=== PATIENT | male | born 1930 | race Caucasian/White ===

== ENCOUNTER 2016-12-28 14:00 | Inpatient (IN) | payer MEDICARE, BC, MEDICAID ==
[~2016-12-28] VITALS: Ht 172.7 cm; Wt 116.0 kg
--- NOTE | ~2016-12-28 | OR ---
PATIENT'S NAME: ISAIAS LOZADA [facility] AGE: 86 Y [address] ROOM: [address] [address] LOCATION: GICU ADMIT DATE: 12/28/2016 OR/Procedure Report DISCHARGE DATE: FAMILY PHYSICIAN: Eliel Rosas MD ATTENDING PHYSICIAN: JIN JEAN V SURGEON: Med Motta MD MASONRY TEACHER: DATE OF PROCEDURE: 12/28/2016 The following lines were placed during the patient's stay here on PCU. HISTORY OF PRESENT ILLNESS: This is an 86-year-old gentleman with a history of vascular problems. He evidently has a clotted right hand side where the PICC is located and will require removal of it. I have been asked to place a central line and essentially arrived at the bedside about 02:45 in the morning. Detailed discussion of risks, benefits was undertaken with the patient's daughter. The patient himself was quite somnolent and not easily aroused. Vital signs are stable. Blood pressure is 120. I understand previously it was low. He does respond somewhat and appropriately; however, drifts off to sleep, so informed consent was obtained from his daughter instead. DETAILS OF THE PROCEDURE: I attempted to place a central line in the right side, but on ultrasonographic evaluation, he had a very small internal jugular vein and given his volume status, it was very difficult to hit. This was also complicated by the fact that the patient vomited copious amounts of dark particulate fluid, I would not call it coffee-ground. We had to break sterilely for that. At that point, I opted to place a right subclavian. The patient's INR is 1.4, so 1 kit had to be discarded. We were unable to come up with another quad lumen kit, so I placed a 16-cm double-lumen. This could be wired over in the morning if they so desire, but they are unable to provide a quad lumen kit tonight, so the patient essentially was placed in Trendelenburg position. Oxygen was delivered 2 L per nasal cannula. An area overlying his clavicle was sterilely prepped with chlorhexidine. Maximal sterile barrier was placed. I gloved and gowned after washing hands. Skin wheal was raised at 1 or 2 fingerbreadths below the junction of the middle and distal thirds of the clavicle inserting an 18-gauge needle towards sternum, I contacted dark venous blood on the first pass, but was unable to thread the needle on the second pass. I redirected caudally somewhat and was again unsuccessful in contacting the vein. The second wire threaded without difficulty. Brief nonsustained ectopy resolved with pullback. A small skin andres was made. A dilator was passed. An 8-Salvadorean two lumen central line was placed over the wire to its hub. Both lumens flushed and pepe freely dark venous blood and this was then sutured in place with 2-0 silk and covered with sterile Tegaderm. At that point, the patient vomited copious amounts down his chest PATIENT'S NAME: ISAIAS LOZADA [facility] AGE: 86 Y [address] ROOM: [address] [address] LOCATION: [facility] ADMIT DATE: 12/28/2016 OR/Procedure Report DISCHARGE DATE: FAMILY PHYSICIAN: Eliel Rosas MD ATTENDING PHYSICIAN: JIN JEAN. By then, we had the Tegaderm placed so the line was safe. Subsequent chest x-ray shows a correct placement without evidence of pneumothorax. Thank very much for allowing me to participate in Mr. Lozada's care. If you have any questions regarding his line, please do not hesitate to call. MD CASSANDRA ALANIZ/aman /[id number] d: 12/29/16 0412 t: 01/08/17 1355, OPERATIVE SUMMARY
--- NOTE | ~2016-12-28 | CON ---
PATIENT'S NAME: ISAIAS ORO [facility] AGE: 86 Y [address] ROOM: [address] [place], [place] [address] LOCATION: GPCU ADMIT DATE: 12/28/2016 Consultation DISCHARGE DATE: FAMILY PHYSICIAN: Eliel Rosas MD ATTENDING PHYSICIAN: JIN JEAN V DATE OF CONSULTATION: 01/01/2017 REFERRING PHYSICIAN: Jazmyn Rivas MD LOCATION: ICU room 6205. REFERRING PROVIDER: Evelyne Suarez MD. CHIEF COMPLAINT: Palliative care referral for goals of care and patient and family support. HISTORY OF PRESENT ILLNESS: The patient is an 86-year-old male who was admitted to [facility] from [facility]. He has a history of a CVA with resulting left- sided weakness in 2000. He has lived at the senior living in [place] for the last 10+ years. Family reports the patient was at the swing bed for treatment of the pneumonia where he developed a DVT in his right upper extremity where he had a PICC placed, he was started on anticoagulation. Family reports the patient had several falls or slides out of bed while at the swing bed. He did develop left-sided flank ecchymosis and left lower extremity edema with a significant drop in his hemoglobin. He did receive 3 units of packed red blood cells down there, but was transferred to [facility] for higher level of care. The patient is currently in the intensive care unit. Apparently, late last week, he was requiring 3-4 vasopressors. At the current time, these have all been weaned off. His creatinine has increased up from 1.2 on admission to currently 2.2. There was some concern for aspiration as he had significant coughing with taking his pills yesterday. He is scheduled for modified barium swallow later today. The patient did also undergo a CT scan, which reveals hematoma in the left vastus lateralis. He is status post left thigh fasciotomy and hematoma evacuation with wound VAC placement on December 28. There is a possibility of the patient returning to surgery to either today or tomorrow to repair this. Over the course of last night, the patient did experience some increased O2 demands from 2 L to 4 L. Given all this, palliative Care has been consulted for patient and family support and goals of care conversation. PREVIOUS OPERATIONS: 1. Left thigh fasciotomy and hematoma evacuation and wound VAC placement on PATIENT'S NAME: ISAIAS ORO [facility] AGE: 86 Y [address] ROOM: [address] [place], [place] [address] LOCATION: GPCU ADMIT DATE: 12/28/2016 Consultation DISCHARGE DATE: FAMILY PHYSICIAN: Eliel Rosas MD ATTENDING PHYSICIAN: JIN JEAN V December 28. 2. Cholecystectomy. PAST MEDICAL HISTORY: 1. 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 2. Hypertension. 3. Hypercholesterolemia. 4. History of depression. HOME MEDICATIONS: 1. Tylenol 650 mg every 4 hours as needed. 2. ProAir two puffs three times daily. 3. Xanax 0.25 mg three times daily as needed. 4. Norvasc 5 mg p.o. daily. 5. Ascorbic acid 500 mg p.o. daily. 6. Aspirin 81 mg p.o. daily. 7. Pulmicort one vial twice daily. 8. Tums 1500 mg p.o. daily. 9. Zyrtec 10 mg p.o. daily. 10. Temovate topical b.i.d. 11. Vitamin B12 1000 mcg p.o. daily. 12. Colace 100 mg p.o. twice daily. 13. Avodart 0.5 mg p.o. daily. 14. Fentanyl (Duragesic) patch 25 mcg, change every 72 hours. 15. Flonase 2 sprays twice daily. 16. Folic acid 2 mg p.o. daily. 17. Razadyne ER 16 mg p.o. daily. 18. Insulin 70/30 10 units twice daily. 19. NovoLog sliding scale. 20. Levemir 14 units daily. 21. Albuterol as needed. 22. Lactulose 30 mL as needed. 23. Levothyroxine 75 mcg p.o. daily. 24. Calmoseptine ointment as needed. 25. Zaroxolyn 5 mg daily. 26. Toprol-XL 25 mg daily. 27. Multivitamin one p.o. daily. 28. Nystatin as needed. 29. Oxybutynin 5 mg p.o. three times daily. 30. Percocet 10/325 one tablet every 4 hours as needed. 31. MiraLAX 17 g daily. 32. Potassium chloride 40 mEq p.o. twice daily. 33. Prednisone 60 mg p.o. daily. 34. Zocor 20 mg p.o. daily. 35. Flomax 0.4 mg every day. PATIENT'S NAME: ISAIAS ORO [facility] AGE: 86 Y [address] ROOM: [place] [address] [facility] ADMIT DATE: 12/28/2016 Consultation DISCHARGE DATE: FAMILY PHYSICIAN: Eliel Rosas MD ATTENDING PHYSICIAN: JIN JEAN V 36. Effexor 75 mg p.o. twice daily. 37. Vitamin E 400 units p.o. daily. 38. Coumadin 5 mg daily. ALLERGIES: DARVON. SOCIAL HISTORY: The patient is . He lives in the [facility], has done so for the past 10+ years. His daughter, Deb, is his power of commercial attorney. He has a history of smoking a pack a day, quit in 1959. No current alcohol use. FAMILY HISTORY: Reviewed and negative. REVIEW OF SYSTEMS: GENERAL: No recent changes in weight. Appetite is unchanged. No recent fever, chills, or night sweats. Positive for fatigue. HEENT: No changes in vision or hearing. No headaches. No sinus congestion. No postnasal drip. RESPIRATORY: Denies feeling short of breath. Does have a frequent harsh cough. No sputum production. CARDIOVASCULAR: No chest pain, pressure, or palpitations. Denies orthopnea. Reports he does not generally have edema. GASTROINTESTINAL: Denies nausea, vomiting, or diarrhea. Has not had a bowel movement since he has been hospitalized. Denies any previous history of dysphagia. GENITOURINARY: Complains of having a difficult time urinating and reports that his penis and scrotum are very swollen. MUSCULOSKELETAL: Reports that his pain is very well managed, rates it at 2/10, more of a generalized discomfort than anything. Denies any back pain. Family reports that at the senior living, he is able to stand and pivot transfer; here at the hospital, he is requiring a full lift. NEUROLOGICAL: Denies numbness or tingling. No seizures. INTEGUMENTARY: Multiple areas of ecchymoses throughout his body. PSYCHIATRIC: Denies feeling overtly depressed or anxious. Denies hallucinations. Denies insomnia. PHYSICAL EXAMINATION: VITAL SIGNS: Blood pressure 160/74, heart rate 81, temperature 98.4, respirations 23, O2 saturations 93% on 4 L. GENERAL: Reveals an alert and generally oriented, though can be forgetful, elderly obese white male, who is sitting in intensive care unit. Does not appear to be in any acute distress. His voice is soft and muffled. HEENT: Normocephalic and atraumatic. Pupils are equal and reactive to light. PATIENT'S NAME: ISAIAS ORO [facility] AGE: 86 Y [address] ROOM: [place] [address] [facility]: [facility] ADMIT DATE: 12/28/2016 Consultation DISCHARGE DATE: FAMILY PHYSICIAN: Eliel Rosas MD ATTENDING PHYSICIAN: JIN JEAN V Sclerae anicteric. Conjunctivae pink. Tongue and mucous membranes are moist and pink. Dentition is poor. CARDIOVASCULAR: Heart tones are regular rate and rhythm. I am not able to note a murmur. RESPIRATORY: Respirations are slightly labored with conversion. Lung sounds are coarse bilaterally in the bases. GASTROINTESTINAL: Abdomen is rounded, soft, nontender. Bowel sounds are present. GENITOURINARY: Has significant amount of edema to the penis and scrotum to the point where is urologist is unable to pass a Nunez. MUSCULOSKELETAL: No significant joint deformities. Peripheral pulses are 1+ bilaterally. Does have generalized edema to all four extremities. SKIN: Warm and dry. He has ecchymosis to all four extremities, especially his bilateral lower legs. He does have a wound VAC present to his left thigh. The unit is not warming, there does appear to be some blood within the sponge as well as a clot under the dressing. NEUROLOGICAL: Does have left-sided. Hemiparesis. Palliative performance scale is 40%. IMPRESSION AND PLAN: 1. Dysphagia with plans for modified barium swallow later today. 2. Weakness. PT and OT as tolerated. 3. Generalized debility. 4. Code status. The patient is a DNR/DNI, does have an advance directive on the chart. His daughter Deb is his power of commercial attorney. Introduced the role of palliative care to daughter Deb. Explained to her that palliative care is not only for end of life, but also for chronic illness as well as goals of care conversation. Discussed my role in assisting with family meetings as needed and answering her questions and providing education. Had a supportive visit, provided emotional support and allowed her to vent her frustrations over the last few days. Answered her questions to her satisfaction. Discussed the changes in his condition over the last couple of days. At this point, given the fact that his ABGs were fairly normal and his chest x-ray did not show anything significant, she would like to continue with current aggressive measures at this point. She does talk about wanting to make sure that he is going to be at a point in his life where he can still have some quality of life. She is quite concerned with him being able to have some quality in his life, given the fact he already has left-sided hemiparesis and is primarily wheelchair bound and lives in a senior living. She does talk about her concern of wanting to have four side rails up on the bed as the patient is requesting this due to his falls out of bed. We will discuss this with nursing staff. We will follow up with the patient and family after modified barium swallow. There is a possibility of surgery tomorrow to close up his thigh fasciotomy. At this point, the patient's prognosis is guarded. Family seems PATIENT'S NAME: ISAIAS ORO [facility] AGE: 86 Y [address] ROOM: [place] [address] [facility]: [facility] ADMIT DATE: 12/28/2016 Consultation DISCHARGE DATE: FAMILY PHYSICIAN: Eliel Rosas MD ATTENDING PHYSICIAN: JIN JEAN V realistic to this, but at this point, are wishing to continue with aggressive cares as long as the patient is doing well. We will continue to follow up for further goals of care, conversation, vent support as needed. Family denied any spiritual needs at this time. Total visit was 45 minutes, greater than 50% of time was spent providing education, counseling, and support. Thank you for allowing me to assist the patient and family. GREG NASH NP FOR MD LIAM LAU/aman /[id number] CC: Evelyne Suarez MD d: 01/02/17 1416 t: 01/15/17 0915, CONSULTATION REPORT
--- NOTE | ~2016-12-28 | OR ---
PATIENT'S NAME: ISAIAS ORO [facility] AGE: 86 Y [address] ROOM: [place] [address] LOCATION: GPCU ADMIT DATE: 12/28/2016 OR/Procedure Report DISCHARGE DATE: 01/10/2017 FAMILY PHYSICIAN: Eliel Rosas MD ATTENDING PHYSICIAN: Sarah Hampton SURGEON: Toro Dawson MD GATHERING MACHINE SETTER: DATE OF PROCEDURE: 12/28/2016 CORRECTION: PREOPERATIVE DIAGNOSIS: Left thigh hematoma. POSTOPERATIVE DIAGNOSIS: Left thigh hematoma. TORO DAWSON MD JMW/modl /[id number] d: 01/24/17 1353 t: 01/27/17 1203, OPERATIVE SUMMARY
--- NOTE | ~2016-12-28 | OR ---
PATIENT'S NAME: ISAIAS LOZADA [facility] AGE: 86 Y [address] ROOM: [place] [address] LOCATION: GPCU ADMIT DATE: 12/28/2016 OR/Procedure Report DISCHARGE DATE: FAMILY PHYSICIAN: Eliel Rosas MD ATTENDING PHYSICIAN: JIN JEAN V SURGEON: Darnell Sims MD DATA RECOVERY PLANNER: Carlos Alvarez, CHLORINATOR OPERATOR/SECURITY VEHICLE PATROL OFFICER. DATE OF PROCEDURE: 01/02/2017 PREOPERATIVE DIAGNOSIS: Status post left thigh fasciotomy. POSTOPERATIVE DIAGNOSIS: Status post left thigh fasciotomy. PROCEDURE PERFORMED: Closure of left thigh wound. ANESTHESIA: Intravenous sedation. ESTIMATED BLOOD LOSS: Less than 10 mL (plus evacuation of approximately 200 mL of organized hematoma). COMPLICATIONS: None. INDICATION FOR PROCEDURE: Mr. Lozada is an 86-year-old male upon whom I performed a left thigh fasciotomy last week. The patient was septic and had been supratherapeutically anticoagulated after an episode of trauma to his thigh. He had a markedly elevated compartment pressures (over 60). He experienced significant relief and has improved clinically since that time. He left the intensive care unit this week. His left thigh swelling has subsided to the point where the wound is closeable. He has had a wound VAC on his thigh since then, and his coagulopathy has resolved. Risks, benefits, limitations, and alternatives to this procedure have been thoroughly reviewed with the patient and his daughter. Informed consent has been granted. We have discussed the potential for wound healing complications and the potential need for further surgery. Informed consent has been granted. DESCRIPTION OF PROCEDURE: The patient positioned supine. Intravenous anesthesia was administered by the nurse cost accounting manager. The VAC was removed from the thigh. The wound dimensions were 6 cm wide by approximately 22 cm long. There was healthy muscle exposed at the base of the wound. After the leg had been prepped and draped with vigilant sterile technique, a digital palpation deep to the quadriceps musculature demonstrated an abundant amount of organized hematoma. This was evacuated digitally in order to decrease tension on the wound margins. The fascia was not closed. The skin could easily be reapproximated with simple deep interrupted #1 Vicryl sutures PATIENT'S NAME: ISAIAS LOZADA [facility] AGE: 86 Y [address] ROOM: [place] [id number] [facility] ADMIT DATE: 12/28/2016 OR/Procedure Report DISCHARGE DATE: FAMILY PHYSICIAN: Eliel Rosas MD ATTENDING PHYSICIAN: JIN JEAN V followed by superficial buried interrupted 0 Vicryl and 2-0 Vicryl sutures, followed by a running subcuticular 3-0 Monocryl suture, followed by Dermabond and Steri-Strips with benzoin. It should be noted that the incision was irrigated with several 100 mL of sterile saline containing bacitracin after the evacuation of hematoma and prior to wound closure. The dressing consisted of an occlusive Mepilex dressing, followed by a gently compressive 6-inch Bud wrap. There were no complications. MD TAHIR SEVERINO/aman /[id number] d: 01/03/17 [facility] t: 01/06/17 [facility], OPERATIVE SUMMARY
--- NOTE | ~2016-12-28 | CON ---
PATIENT'S NAME: ISAIAS ORO [facility] AGE: 86 Y [address] ROOM: [place] [address] LOCATION: GPCU ADMIT DATE: 12/28/2016 Consultation DISCHARGE DATE: FAMILY PHYSICIAN: Eliel Rosas MD ATTENDING PHYSICIAN: JIN JEAN V REFERRING PHYSICIAN: Jazmyn Rivas MD INPATIENT CONSULTATION HISTORY OF PRESENT ILLNESS: Dr. Jean has requested that I provide an inpatient consultation on this 86- year-old male, who is transferred here from [place] today due to deteriorating medical status and an associated left thigh hematoma. The patient, himself, is quite lethargic and is, therefore, a suboptimal historian. At baseline, his functional status is quite limited. He has significant balance difficulties and chronic left lower extremity weakness. The patient states that he has been wheelchair-bound for approximately 5 years. He notes chronic weakness of his left knee and left ankle. He states that he has had several recent falls in the last few weeks. He has been on Lovenox and Coumadin. He has developed a left thigh swelling and tenderness over the past few days, and he is noted to have dropped his hemoglobin and hematocrit. A CT scan (performed this morning) has demonstrated a left thigh hematoma. Concern was raised regarding the potential for compartment syndrome. The patient states that the weakness in his left knee and left ankle are no worse than baseline. He denies numbness or paresthesias at his left foot. He states that pain medications are alleviating his thigh discomfort. His anticoagulation has been discontinued. It should be noted that the above specified history was obtained from the patient, himself. The patient's admitting physician (Dr. Jean) suspects that the patient might be septic. ALLERGIES: PROPOXYPHENE, TRAMADOL, METHADONE. MEDICATIONS: On admission: 1. Aspirin. 2. Avodart. 3. Tums. 4. Temovate. 5. Colace. 6. Vitamin B12 supplement. 7. Duragesic patch. 8. Effexor. 9. Flomax. PATIENT'S NAME: ISAIAS ORO [facility] AGE: 86 Y [address] ROOM: [place] [address] LOCATION: GPCU ADMIT DATE: 12/28/2016 Consultation DISCHARGE DATE: FAMILY PHYSICIAN: Eliel Rosas MD ATTENDING PHYSICIAN: JIN JEAN V 10. Folic acid. 11. Constulose. 12. Norvasc. 13. Ditropan. 14. Potassium supplement. 15. Albuterol. 16. Razadyne ER. 17. Levothroid. 18. Tylenol. 19. Vitamin C and E supplements. 20. Xanax. 21. Zaroxolyn. 22. Zocor. 23. Zyrtec. 24. Albuterol. 25. Cefepime. 26. Insulin. 27. Imipenem. 28. Vancomycin. 29. Pulmicort. 30. Nystatin. 31. Levemir. 32. Prednisone. 33. Metoprolol. 34. Oxycodone. 35. Lovenox. 36. Coumadin. PHYSICAL EXAMINATION: GENERAL: Alert but quite lethargic. No distress. Respirations nonlabored. Slightly diaphoretic. No acute distress. Obese. MUSCULOSKELETAL: Left thigh is markedly swollen and moderately firm and moderately tender. Quadriceps motor strength is 2/5. Dorsiflexion strength at the left ankle is 0/5. Plantar flexion strength at the left ankle is 4/5. 2+ dorsalis pedis pulse. Sensation to light touch is intact throughout the left foot. RADIOGRAPHS: I have reviewed the CT scan of the left lower extremity. There is no fracture of the left hip or left femur. There is swelling of the left anterior thigh. There is no discrete mass. IMPRESSION: Left thigh strain with associated hematoma, associated with anticoagulation. PATIENT'S NAME: ISAIAS ORO [facility] AGE: 86 Y [address] ROOM: [address] [place] [id number] LOCATION: GPCU ADMIT DATE: 12/28/2016 Consultation DISCHARGE DATE: FAMILY PHYSICIAN: Eliel Rosas MD ATTENDING PHYSICIAN: JIN JEAN V RECOMMENDATIONS: The patient is not presently appear to have a compartment syndrome. Furthermore, he has severe baseline neurologic deficits of the left lower extremity, which (based upon the patient's history are no more severe presently compared to baseline). I have recommended holding his anticoagulation until further notice. I have left strict orders to be called if analgesia is inadequate. We will consider obtaining compartment pressures and/or performing a fasciotomy if his level of discomfort increases. However, based on his clinical examination presently, he does not require fasciotomy. We will follow him along clinically. MD TAHIR SEVERINO/aman /[id number] CC: Jin Jean MD d: 12/28/16 2232 t: 01/06/17 1005, CONSULTATION REPORT
--- NOTE | ~2016-12-28 | HP ---
PATIENT'S NAME: ISAIAS ORO [facility] AGE: 86 Y [address] ROOM: [address] [address] LOCATION: GPCU ADMIT DATE: 12/28/2016 History & Physical DISCHARGE DATE: FAMILY PHYSICIAN: Eliel Rosas MD ATTENDING PHYSICIAN: JIN JEAN V DATE OF SERVICE: CHIEF COMPLAINT: Transfer to higher level of care. HISTORY OF PRESENT ILLNESS: The patient is an 86-year-old male with past medical history most significant for a CVA with residual left-sided deficits, resident of [place] [facility]. The patient is being transferred to us from the [facility] in [place]. He was initially admitted there with a diagnosis of left lower lobe pneumonia. He was treated with vancomycin and cefepime and improved. Subsequent to that, he was moved to the [facility]. In the course of last several days, the patient has had a number of complications. One, he had swelling of right upper extremity where he has a PICC and ultrasound showed a DVT. He was started on anticoagulation. He was also found to have an elevating white count from approximately 10-14 to 21-24 in the course of last several days. It should be noted that he was on steroids for a treatment of his presumed COPD/pneumonia. He also developed left lower extremity edema. Concurrently with the left lower extremity edema, the patient developed left flank ecchymosis as well as a precipitous drop in his hemoglobin from a range of 10s to mid 7s. A CAT scan done on his pelvis today showed flank ecchymosis as well as a likely hematoma in the left vastus lateralis. The patient has already received 3 units of blood and was subsequently transferred to [facility] for further care. At this point, the patient is quite sedated and does not really volunteer significant amount of pain in his left lateral thigh. However, it looks like he has had some opioids earlier. I also requested for the patient to get some FFP as he was initially getting anticoagulated for his DVTs. Please note he has DVT in right upper arm and left lower leg. He denies any chest pain, shortness of breath, nausea, vomiting, diarrhea, but does endorse constipation and generalized fatigue now. REVIEW OF SYSTEMS: All systems have been reviewed and are negative aside from pertinent positives mentioned above. PATIENT'S NAME: ORO, [facility] AGE: 86 Y [address] ROOM: [place] [address] LOCATION: GPCU ADMIT DATE: 12/28/2016 History & Physical DISCHARGE DATE: FAMILY PHYSICIAN: Eliel Rosas MD ATTENDING PHYSICIAN: JIN JEAN V PAST MEDICAL HISTORY: As provided by his daughter who is at the bedside is that of, 1. 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 2. History of cholecystectomy. 3. History of essential hypertension. 4. Hypercholesterolemia. 5. Depression. 6. Additional acute history as described above. CURRENT MEDICATIONS: 1. Aspirin 81. 2. Augmentin. 3. Calcium and vitamin D. 4. Clobetasol topical cream. 5. Colace 100 two times a day. 6. Cyanocobalamin. 7. Dutasteride. 8. Effexor. 9. Fentanyl patch. 10. Flomax. 11. Flonase. 12. Folic acid. 13. Lactulose. 14. Levothyroxine. 15. Multivitamin. 16. Norvasc 5. 17. Oxybutynin. 18. Polyethylene glycol. 19. Potassium chloride. 20. ProAir. 21. Razadyne ER (galantamine). 22. Vitamin E. 23. Xanax. 24. Zaroxolyn. 25. Zocor. 26. Zyrtec. SOCIAL HISTORY: Significant for distant and not pertinent history of tobacco use. FAMILY HISTORY: Reviewed and is noncontributory due to known underlying etiology for his presentation. PATIENT'S NAME: ISAIAS ORO [facility] AGE: 86 Y [address] ROOM: [address] [place] [id number] LOCATION: GPCU ADMIT DATE: 12/28/2016 History & Physical DISCHARGE DATE: FAMILY PHYSICIAN: Eliel Rosas MD ATTENDING PHYSICIAN: JIN JEAN V PHYSICAL EXAMINATION: VITAL SIGNS: Blood pressure is 140s over 70s, heart rate is in 70s, saturating 97% on 2 L nasal cannula, afebrile, and respirations are 16. GENERAL: Appears as a morbidly obese, elderly male, chronically ill, but in no acute distress. NEUROLOGIC: Exam shows left-sided hemiparesis. LYMPHATIC: Exam shows no cervical lymphadenopathy. ENDOCRINE: Exam shows no thyromegaly. LUNGS: Grossly clear to auscultation. HEART: Rate is regular with no appreciable murmurs, gallops, or rubs. GI: Exam shows abdomen is obese, soft, nontender, nondistended with normoactive bowel sounds. VASCULAR: Exam reveals preserved 2+ pedal pulses at distal lower extremities bilaterally. MUSCULOSKELETAL: Exam reveals a firm swelling over the left lateral compartment of his legs. There is not too much tenderness. SKIN: Exam reveals diffuse ecchymosis over his left flank extending into his left abdomen. PSYCHIATRIC: Exam reveals appropriate mood, cognition, affect, and orientation. DIAGNOSTIC DATA: No studies have been drawn at [facility] as of yet, but review of studies from the outside facility is significant for a CT of upper left upper leg which shows marked swelling of the vastus lateralis diffusely, involvement of the rectus femoris and vastus medialis as well, which is most likely related to hemorrhage. No confluent fluid focus. A CT abdomen and pelvis, without contrast, shows extensive nonocclusive thrombus throughout the left lower extremity. EKG shows showed sinus rhythm at 72 beats per minute with sinus arrhythmia, left axis deviation, and interventricular conduction delay with Q-waves anteroseptally and inferiorly. Lab results from outside facility are significant for INR 1.5. CBC showing white count 21.3, hemoglobin 7.8, and platelets 110. Unremarkable basic metabolic profile. ASSESSMENT AND PLAN: This is an 86-year-old male who is being admitted with multiple complicated medical conditions. Individual problems to be addressed as follow: 1. Left thigh hematoma. While this does not appear to be a compartment syndrome yet, but I am concerned that it may develop into one. We will request an orthopedic consultation from Dr. Sims and follow up his recommendations. We will also reverse for coagulopathy that may be present. PATIENT'S NAME: ISAIAS ORO [facility] AGE: 86 Y [address] ROOM: [address] [place] [id number] [facility]ATION: [facility] ADMIT DATE: 12/28/2016 History & Physical DISCHARGE DATE: FAMILY PHYSICIAN: Eliel Rosas MD ATTENDING PHYSICIAN: JIN JEAN V 2. Coagulopathy, this is iatrogenic, but we have to make sure this is not a consumptive coagulopathy as well. We will check his coags, platelets, as well as fibrinogen and treat appropriately. 3. Extensive left lower extremity deep venous thrombosis/right upper extremity deep venous thrombosis. The patient will likely need an IVC filter, and we will arrange that. 4. Leukocytosis, it is not clear to me if the patient is presently infected, but he certainly is at risk for nosocomial infections. We will repeat blood cultures and place him on broad-spectrum antibiotics. We will also follow up with blood cultures from the outside facility. I do not appreciate recent imaging of his chest cavity to be the source of his infection, and we will check his urine as well. 5. Acute hypoxic respiratory failure. This is likely due to recent pneumonia as well as possible obstructive sleep apnea. We will provide him with supplemental oxygen. 6. Considerable constipation as observed on recent images. We will provide him with an aggressive bowel regimen. 7. Goals of care. I did discuss his wishes regarding CPR and intubation, and his daughter who is familiar with her father's wishes informing that the patient is definitely a DNR/DNI, and we will respect his decisions. Additional management depend on clinical course. Time dedicated to this patient's encounter is 35 minutes. MD SURY MCNEIL/aman /[id number] D: [id number] T: [id number] HISTORY & PHYSICAL
--- NOTE | ~2016-12-28 | CON ---
PATIENT'S NAME: ISAIAS ORO [facility] AGE: 86 Y [address] ROOM: [place] [address] LOCATION: GICU ADMIT DATE: 12/28/2016 Consultation DISCHARGE DATE: FAMILY PHYSICIAN: Eliel Rosas MD ATTENDING PHYSICIAN: JIN JEAN V REFERRING PHYSICIAN: Jazmyn Rivas MD HISTORY OF PRESENT ILLNESS: The patient is an 86-year-old male, transferred from [facility] secondary to deteriorating mental status and left thigh hematoma. This required surgical decompression or fasciotomy. The patient was on Lovenox and Coumadin at that time and has just been reversed. Last INR was approximately 1.4. Staff is attempting to monitor urine output. Therefore, they attempted to place a Nunez catheter unsuccessfully. PAST MEDICAL HISTORY: Significant for hypertension, hypercholesterolemia, depression, history of cerebrovascular accident. PAST OPERATIONS: Include cholecystectomy. MEDICATIONS ON ADMISSION: See detailed history and physical. SOCIAL HISTORY: The patient has a distant history of smoking. REVIEW OF SYSTEMS: Unobtainable. PHYSICAL EXAMINATION: GENERAL: Agitated elderly male, appears confused, obese. RESPIRATORY: No evidence of distress. ABDOMEN: Obese, soft, nontender to palpation. NEUROLOGIC: Agitated and confused. : Uncircumcised with very edematous phallus. Unable to retract foreskin. I attempted to place a Nunez catheter, but unfortunately the patient's penis is buried under his edema and foreskin. Unable to completely palpate the meatus. I attempted multiple times unsuccessfully. IMPRESSION: Uncircumcised with penile edema. PLAN: PATIENT'S NAME: ISAIAS ORO [facility] AGE: 86 Y [address] ROOM: [address] [address] LOCATION: GICU ADMIT DATE: 12/28/2016 Consultation DISCHARGE DATE: FAMILY PHYSICIAN: Eliel Rosas MD ATTENDING PHYSICIAN: JIN JEAN V Recommend elevating scrotum. Recommend using a condom catheter since the patient is able to void. To place a Nunez, we will require most likely circumcision and cystoscopy. LAROY E GREGORIO, MD CRISTHIAN/aman /[id number] d: 12/30/165 t: 01/15/17 1915, CONSULTATION REPORT
--- NOTE | ~2016-12-28 | OR ---
PATIENT'S NAME: ISAIAS LOZADA [facility] AGE: 86 Y [address] ROOM: [place] [address] LOCATION: GPCU ADMIT DATE: 12/28/2016 OR/Procedure Report DISCHARGE DATE: FAMILY PHYSICIAN: Eliel Rosas MD ATTENDING PHYSICIAN: JIN JEAN V SURGEON: Darnell Sims MD MEN'S SWIM COACH: None. DATE OF PROCEDURE: 12/28/2016 PREOPERATIVE DIAGNOSES: 1. Right thigh hematoma. 2. Coagulopathy (secondary to Lovenox and Coumadin). 3. Evolving left thigh compartment syndrome. POSTOPERATIVE DIAGNOSES: 1. Right thigh hematoma. 2. Coagulopathy (secondary to Lovenox and Coumadin). 3. Evolving left thigh compartment syndrome (no muscle necrosis). PROCEDURES PERFORMED: 1. Left thigh compartment pressure measurement. 2. Left thigh fasciotomy. 3. Evacuation of left thigh hematoma. ANESTHESIA: General endotracheal anesthesia. ESTIMATED BLOOD LOSS: Approximately 500 mL (almost all of which was hematoma). COMPLICATIONS: None. INDICATION FOR PROCEDURE: Mr. Lozada is an 86-year-old male, presenting with signs and symptoms of a left thigh compartment syndrome. He has been anticoagulated on Lovenox and Coumadin. He is extremely medically frail. He is moderately obtunded. He has been experiencing progressive left thigh swelling and pain subsequent to a fall out of his wheelchair. CT scan has demonstrated a large thigh hematoma. His pain has been becoming more severe and not responding to parenteral analgesics. Risks, benefits, limitations, and alternatives to fasciotomy have been thoroughly reviewed with the patient and with his daughter (who is his power of staff attorney). His power of staff attorney has granted informed consent via phone. We have specifically discussed the potential for infection and neurovascular compromise. I have informed them that it is quite possible that he will need to be brought back to the operating room at a later date for wound closure. The patient has received vitamin K and FFP earlier in the day. He has been noted to have lost a PATIENT'S NAME: ISAIAS LOZADA [facility] AGE: 86 Y [address] ROOM: [place] [address] LOCATION: GPCU ADMIT DATE: 12/28/2016 OR/Procedure Report DISCHARGE DATE: FAMILY PHYSICIAN: Eliel Rosas MD ATTENDING PHYSICIAN: JIN JEAN V significant amount of blood (presumably into his thigh). DESCRIPTION OF PROCEDURE: The patient was positioned supine. General endotracheal anesthesia and prophylactic antibiotics were administered. The left leg was thoroughly cleansed with a chlorhexidine wipe, and the anterolateral thigh was prepped with Betadine. The Pix[employer] compartment pressure monitor was assembled and calibrated and advanced percutaneously anterolaterally in [address]. Compartment pressures ranged between 60 and 72. The left lower extremity was subsequently prepped and draped with vigilant sterile technique. A 15 cm longitudinal anterolateral incision was made and carried down to and through the fascia. The fascia was digitally divided approximately 10 cm further proximally (subcutaneously) and approximately 10 cm further distally (subcutaneously). The anterior thigh musculature immediately partially herniated through the fascia and the fascia parted approximately 4 cm. Digital palpation of the vastus lateralis revealed that it was stretched to a paper thin state. Several 100 mL of blood spontaneously expressed itself from beneath the vastus lateralis. There was a resultant large potential space between the vastus lateralis and the anterolateral aspect of the femoral shaft. The space was thoroughly irrigated with sterile saline containing bacitracin. Electrocautery was utilized to stimulate the vastus lateralis. All visible portions of the muscle contracted well and none appeared necrotic. There was no significant active hemorrhage. A wound VAC device was applied and primed. The seal was confirmed to be intact. The patient was subsequently extubated and transported to the Postanesthesia Care Unit in stable and comfortable condition. There were no complications. MD TAHIR SEVERINO/aman /[id number] d: 12/29/16 0654 t: 01/06/17 1009, OPERATIVE SUMMARY
--- NOTE | ~2016-12-28 | ENPV ---
Vascular Lower Extremities DVT Study Procedure Demographics Patient Name ISAIAS ORO Date of Study 01/03/2017 Patient Number [id number] Gender Male Date of 1930 Age 86 Visit Number [id number] Height 68 Weight 243.01 Number Referring Bijujosejose Avila Interpreting Rob Michelle Physician Physician A Physician Ordering Tova Avila Milk Processing Worker Physician Bank Vault Clerk Kyleigh Hinds [facility] Marek Reed Conclusions Summary No evidence of deep vein thrombosis or superficial thrombophlebitis in the lower extremities bilaterally . Left distal femoral vein was difficult to compress due to bandage. Left distal femoral vein appears to be patent. Procedure Type of Study: Veins:Lower Extremities DVT Study, Venous Duplex Lower Extremity Bilateral. Indications for Study:Previous DVT and DVT, History of. Patient Status:Routine. Study Location:Inpatient Portable. Technical Quality:Adequate visualization. Velocities are measured in cm/s ; Diameters are measured in cm Right Lower Extremities DVT Study Measurements Right 2D and Doppler Measurements + + + + +------+------+ + !Location !Visualized!Compressibility!Thrombosis!Signal!Reflux!Reflux ! ! ! ! ! ! ! !(sec) ! + + + + +------+------+ + !GSV Thigh !Yes !Yes !None !Phasic!No ! ! + + + + +------+------+ + !Common !Yes !Yes !None !Phasic!No ! ! !Femoral ! ! ! ! ! ! ! + + + + +------+------+ + !Prox !Yes !Yes !None !Phasic!No ! ! !Femoral ! ! ! ! ! ! ! + + + + +------+------+ + !Mid Femoral!Yes !Yes !None !Phasic!No ! ! + + + + +------+------+ + !Dist !Yes !Yes !None !Phasic!No ! ! !Femoral ! ! ! ! ! ! ! + + + + +------+------+ + !Popliteal !Yes !Yes !None !Phasic!No ! ! + + + + +------+------+ + !Gastroc !Yes !Yes !None !Phasic!No ! ! + + + + +------+------+ + !PTV !Yes !Yes !None !Phasic!No ! ! + + + + +------+------+ + !Peroneal !Yes !Yes !None !Phasic!No ! ! + + + + +------+------+ + Left Lower Extremities DVT Study Measurements Left 2D and Doppler Measurements + + + + +------+------+ + !Location !Visualized!Compressibility!Thrombosis!Signal!Reflux!Reflux ! ! ! ! ! ! ! !(sec) ! + + + + +------+------+ + !GSV Thigh !Yes !Yes !None !Phasic!No ! ! + + + + +------+------+ + !Common !Yes !Yes !None !Phasic!No ! ! !Femoral ! ! ! ! ! ! ! + + + + +------+------+ + !Prox !Yes !Yes !None !Phasic!No ! ! !Femoral ! ! ! ! ! ! ! + + + + +------+------+ + !Mid Femoral!Yes !Yes !None !Phasic!No ! ! + + + + +------+------+ + !Dist !Yes !Yes !None !Phasic!No ! ! !Femoral ! ! ! ! ! ! ! + + + + +------+------+ + !Popliteal !Yes !Yes !None !Phasic!No ! ! + + + + +------+------+ + !Gastroc !Yes !Yes !None !Phasic!No ! ! + + + + +------+------+ + !PTV !Yes !Yes !None !Phasic!No ! ! + + + + +------+------+ + Signature dtt: Jazmyn Rivas dtd: 01/03/17 1157 Physician Self Edit
--- NOTE | ~2016-12-28 | ECHO ---
Transthoracic Echocardiography Report (TTE) Demographics Patient Name ISAIAS ORO Date of Study 12/29/2016 Patient Number [id number] Visit Number [id number] Date of 1930 Room Number G6205 Gender Male Number Age 86 year(s) Referring Alison Julian Baker Biscuit Kendra Hankins RDCS, Physician RVT Physician Interpreting Rob Michelle Fraud Prevention Analyst Physician A MD Supervising Ordering Tamie Kemp MD/ROSALIOP Physician MD Nurse Stress Manager Application Conclusions Summary Technically difficult exam due to patient body habitus and lung interference. The estimated left ventricular ejection fraction is > 75%. Normal right ventricular size and function. Right ventricular hypertrophy. Procedure Type of Study TTE procedure:2D Echocardiogram, Echo Limited w/o Contrast. Procedure Date Date: 12/29/2016 Start: 10:50 AM Study Location: Inpatient Portable Technical Quality: Limited visualization due to poor acoustical window. Indications:Shortness of breath. Appropriate Use Criteria: 9 Patient Status: Routine HR: 127 bpm BP: 92/79 mmHg M-Mode/2D Measurements LVOT: 2.1 cm Findings Right Ventricle Normal right ventricular size and function. Right ventricular hypertrophy. Pericardial Effusion Epicardial fat pad noted. Signature dtt: Jazmyn Rivas dtd: 12/29/16 1050 Physician Self Edit
--- NOTE | ~2016-12-28 | CATH ---
Peripheral Interventional Report Demographics Patient Name PREETHI Patrick Gender Male Date of 1930 Age 86 year(s) Patient Number [id number] Date of Study 01/04/2017 Visit Number [id number] Room Number G6[address] [place] [id number] Ht 172.72 cm Wt 110.22 kg Referring Ynesraiza Jamel Primary Physician Physician Justo IRIZARRY Performing Efstratiou Secondary Physician Physician Viviana Christopher MD Diagnostic Assisting Physician Physician Interventional Efstratiou Physician Manager Of Operations Physician Viviana Christopher MD Findings and Conclusions Peripheral Findings and Conclusions Successful deployment of a Trapease IVC filter below the level of the renal veins from a L femoral vein access. The R vein travels underneath the artery as assessed by ultrasound. Peripheral Recommendations Procedure Description The patient was brought to the diagnostic cardiac catheterization-EP laboratory in the fasting, non-sedated state. Informed consent was obtained in the written and verbal form after the risks and benefits were explained. The patient had no further questions and agreed to proceed. The planned puncture-incision site(s) were shaved and prepped with ChloraPrep and draped in the usual sterile manner. Supplemental oxygen and pain control medications were delivered by a registered nurse under physician guidance. Surface ECG rhythm, blood pressure measurement, and pulse oximetry were monitored throughout the procedure. Venous access. The access site was infiltrated with lidocaine. The vessel was entered with the Seldinger technique. A sheath was advanced into the vessel and used for catheter placement. Inferior Venacava Filter Placement: After an Inferior Venocavagram was performed an IVC filter was placed below the level of the renal veins. Hemostasis: The sheath(s) was removed and manual compression was performed. Hemostasis was achieved. The patient was transferred to a regular nursing floor via cart accompanied by a nurse. The patient left the laboratory in stable condition. Procedure Procedure Type Peripheral vascular Intervention:IVC Filter:, Insertion Indications: DVT, History of. The procedure was explained in detail to the patient. Risks, complications and alternative treatments were reviewed. Written consent was obtained. Medications Reviewed with Patient prior to Procedure. Angiographic Findings Procedure Data Procedure Date Date: 01/04/2017Start: 08:09 AMEnd: 08:40 AM Entry Locations - The Right Femoral vein access attempt was not successful. Entry Comments: Unable to obtain access via right vein. . - Retrograde Percutaneous access was performed through the Left Femoral vein (Primary location). A 6 Fr sheath was inserted. Hemostasis was successfully obtained using Manual Compression. Closure Comments: Pressure held by Ted Varner.. Procedure Medications Order and Administration + + + +-------+ !Time !Medication !Dosage !Route ! + + + +-------+ !01/04/2017 07:57 AM !Oxygen !6 l/min !NC ! + + + +-------+ !01/04/2017 08:28 AM !Fentanyl !50 mcg ! ! + + + +-------+ Contrast Material - Isovue 38999 ml Fluoroscopy Time: Diagnostic: 1:42 minutes. Total: 1:42 minutes. Fluoroscopy Dose: Diagnostic: 179 mGy. Total: 179 mGy. Estimated Blood Loss: 4 ml. Medical History Allergies - Other:(proproxyphene, metoprolol, tramadol). Risk Factors The patient risk factors include:peripheral arterial disease, cerebrovascular disease, hypertension, last creatinine: 2.2 mg/dl, creatinine clearance: 38.27 ml/min and former tobacco use. Admission Data Admission Date: 12/28/2016 Admission Time: 02:57 PM Insurance Payors: Medicare. Hemodynamics Condition: Rest O2 Consumption: Estimated: 261.43Heart Rate: 81 bpm Shunts Oxygen Values O2 Capacity 104.72 O2 Consumption 261.43 Signatures dtt: Jazmyn Rivas dtd: 01/04/17 0809 Physician Self Edit
--- NOTE | ~2016-12-28 | CON ---
PATIENT'S NAME: ISAIAS ORO [facility] AGE: 86 Y [address] ROOM: [id number] [place], [place] [address] LOCATION: GPCU ADMIT DATE: 12/28/2016 Consultation DISCHARGE DATE: FAMILY PHYSICIAN: Eliel Rosas MD ATTENDING PHYSICIAN: JIN JEAN V REFERRING PHYSICIAN: Jazmyn Rivas MD INPATIENT CONSULTATION HISTORY OF PRESENT ILLNESS: Subsequent to being transferred from [facility] earlier today, the patient is experiencing increasing left thigh pain, which has not responded favorably to parenteral analgesics. He notes the trend of increased thigh pressure, swelling, and pain. He reports inadequate analgesia. I have obtained supplemental history from the patient's sister, Deb, by phone this evening. She is his power of melter helper. She reports that he has been hospitalized in [place] for approximately 2 weeks. He was initially admitted with pneumonia. He was subsequently diagnosed with a DVT. She states that he has slid out of bed at least twice since being admitted. His most recent fall was on Sunday (3 days ago). 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 RECOMMENDATIONS: In light of the fact that the patient is on high doses of narcotics and reporting inadequate analgesia (in light of the fact that the patient and his sister report that there has been progressive discomfort over the past week and significant progressive discomfort evolving up until the present), I have recommended that we proceed with fasciotomy. Furthermore, the patient's mental status is slightly compromised, and, therefore, we would not want to miss the diagnosis. His thigh is now tensely distended. We will perform an anterolateral fasciotomy. I have discussed technical aspects of surgery as well as risks and limitations thereof with the patient's daughter by phone. She has given informed consent. I have discussed the potential for infection and neurovascular compromise. I have informed her that there is a moderate chance that the skin will not be closable presently, and that he may need to be taken back for wound closure once swelling subsides. She understands and accepts this. We are presently awaiting OR availability. TORO DAWSON MD PATIENT'S NAME: ISAIAS ORO [facility] AGE: 86 Y [address] ROOM: [place] [address] LOCATION: GPCU ADMIT DATE: 12/28/2016 Consultation DISCHARGE DATE: FAMILY PHYSICIAN: Eliel Rosas MD ATTENDING PHYSICIAN: JIN JEAN/aman /[id number] d: 12/29/16 0154 t: 01/06/17 1007, CONSULTATION REPORT
--- NOTE | ~2016-12-28 | CON ---
PATIENT'S NAME: ISAIAS ORO [facility] AGE: 86 Y [address] ROOM: [place] [address] LOCATION: GPCU ADMIT DATE: 12/28/2016 Consultation DISCHARGE DATE: FAMILY PHYSICIAN: Eliel Rosas MD ATTENDING PHYSICIAN: JIN JEAN V DATE OF CONSULTATION: 01/03/2017 REFERRING PHYSICIAN: Jazmyn Rivas MD REASON FOR CARDIOLOGY CONSULT: Requested IVC filter placement. HISTORY OF PRESENT ILLNESS: This is an 86-year-old male admitted with a left thigh hematoma with a subsequent fasciotomy and is currently status post a closure of that wound. He was previously found to have a left lower extremity DVT as well as a right upper extremity DVT prior to his transfer to [facility]. Due to this hematoma and extensive bleeding, he cannot be anticoagulated at this time, so consult is requested for IVC filter placement. He denies chest pain and states he is "comfortable." He denies any previous myocardial infarction, but does have an old CVA from 2000. Currently resides in a nursing facility. He was previously being treated in a Swing Bed Facility for a left lower lobe pneumonia when he developed this lower extremity hematoma and was transferred to [facility] for higher level of care. His EKG from 2014 shows a possible old inferior wall and anterior wall FL. Repeat EKG here shows more of an anterior wall. His echocardiogram though shows estimated left ventricular ejection fraction of greater than 75%. There is also normal right ventricular size and function. PAST MEDICAL HISTORY: 1. CVA in 2000. 2. Hypertension. 3. Hypercholesterolemia. 4. Depression. PAST SURGICAL HISTORY: Cholecystectomy. FAMILY HISTORY: Noncontributory at this time. SOCIAL HISTORY: The patient is a former cigarette smoker. He smoked 1 pack per day and quit smoking in 1959. He denies alcohol or illicit drug use. PATIENT'S NAME: ISAIAS ORO [facility] AGE: 86 Y [address] ROOM: [place] [address] LOCATION: GPCU ADMIT DATE: 12/28/2016 Consultation DISCHARGE DATE: FAMILY PHYSICIAN: Eliel Rosas MD ATTENDING PHYSICIAN: JIN JEAN V CURRENT MEDICATIONS: 1. Ipratropium bromide and albuterol sulfate inhaled 4 times daily. 2. Pulmicort inhaled twice daily. 3. Flonase 2 sprays intranasally twice daily. 4. Avodart 0.5 mg p.o. daily in the evening. 5. Effexor 75 mg p.o. twice daily. 6. Flomax 0.4 mg p.o. daily in the evening. 7. Lactinex 1 tablet p.o. 4 times daily. 8. Levothyroxine 75 mcg p.o. daily. 9. Lopressor 25 mg p.o. twice daily. 10. MiraLax 17 g p.o. twice daily. 11. Norvasc 10 mg p.o. daily. 12. Razadyne 8 mg p.o. twice daily. 13. Sanctura 20 mg p.o. twice daily. 14. Zocor 20 mg p.o. daily in the evening. 15. NovoLog subcu on a mild sliding scale per every 4 hour Accu-Cheks. 16. NovoLog 1 unit per 15 g subcu with meals. 17. Duragesic patch 25 mg transdermally every 72 hours. MEDICATION ALLERGIES: Include propoxyphene, tramadol, and methadone. REVIEW OF SYSTEMS: Pertinent positive review of systems listed in the HPI. All other review of systems evaluated and negative. PHYSICAL EXAMINATION: VITAL SIGNS: Temperature 98.2, pulse 84, respirations 20, blood pressure 138/67, and O2 saturation 93% on 4 L nasal cannula. The patient weighs 119.2 kg. SKIN: [place], warm, and dry. HEENT: Eyes: Sclerae clear. No xanthelasmas. ENT: Oral mucosa is pink and moist. No jugular venous distention. No carotid bruits. CHEST: Respirations are even and unlabored. LUNGS: Clear to auscultation with diminished lung sounds noted to bilateral bases. HEART: Regular rate and rhythm. Normal S1, S2. No murmurs, rubs, or gallops. ABDOMEN: Soft and nontender. MUSCULOSKELETAL: Noted left-sided hemiparesis. He does have muscle movements in all 4 extremities, but the left side is noted to be weaker. EXTREMITIES: Peripheral pulses palpable. No clubbing or cyanosis noted. Does have 1 to 2+ lower extremity edema present. PSYCH: Alert and oriented. Mood and affect are appropriate. PATIENT'S NAME: ISAIAS ORO [facility] AGE: 86 Y [address] ROOM: [address] [place], [place] [address] LOCATION: [facility] ADMIT DATE: 12/28/2016 Consultation DISCHARGE DATE: FAMILY PHYSICIAN: Eliel Rosas MD ATTENDING PHYSICIAN: JIN JEAN V IMPRESSION AND PLAN: Per Dr. Rivas: 1. Fall with significant bleeding and hematoma, status post fasciotomy and subsequent wound closure. 2. Upper and lower deep venous thrombosis without the ability to anticoagulate and need for IVC filter. The patient needs this IVC filter placed and the risks and benefits of the procedure have been discussed with the patient, his family, and Dr. Rivas. Plan will be to proceed with the filter placement in a.m. We will continue to monitor, evaluate, and treat as appropriate. Thank you for this consult. Thank you for allowing [facility] to interact in the care of the patient. HUBERT FIERRO APRN FOR JUAN-MD DAMI CAGLE/modl /[id number] d: 01/03/17 2302 t: 01/14/17 1144, CONSULTATION REPORT
--- NOTE | ~2016-12-28 | OR ---
PATIENT'S NAME: ISAIAS ORO [facility] AGE: 86 Y [address] ROOM: [place] [address] LOCATION: GPCU ADMIT DATE: 12/28/2016 OR/Procedure Report DISCHARGE DATE: FAMILY PHYSICIAN: Eliel Rosas MD ATTENDING PHYSICIAN: JIN JEAN V SURGEON: Janie Perkins MD SUBSTATION TECHNICIAN: DATE OF PROCEDURE: 01/05/2017 PREOPERATIVE DIAGNOSIS: Inability to pass Nunez catheter tube, urinary incontinence. POSTOPERATIVE DIAGNOSIS: Inability to pass Nunez catheter tube, urinary incontinence. PROCEDURE PERFORMED: Cystoscopy with complicated Nunez catheter placement. ANESTHESIA: MAC. COMPLICATIONS: None. INDICATION FOR PROCEDURE: The patient is an 86-year-old male admitted secondary to anemia and lower extremity compression. The patient underwent fasciotomy and drainage of hematoma. Staff was unable to pass Nunez catheter. I attempted to pass Nunez catheter and was unsuccessful secondary to extreme penile and scrotal edema. DETAILS OF PROCEDURE: After informed consent obtained, the patient was taken to the operating room. A MAC anesthetic was applied. He was placed in dorsal lithotomy position. The groin area was prepped and draped in normal sterile fashion. I was able to retract the foreskin a little better and also the patient's edema has improved. With the cystoscope, I was able to locate the glans which was buried underneath his foreskin edema and entered into the urethra and bladder. The patient was noted to have prostatic enlargement with an elevated bladder neck. I then passed a guidewire through the cystoscope. I then placed an 18-[place] tip catheter over the guidewire up into the bladder which was drained. I also sent a sample for urinalysis and culturing. The balloon was inflated and the guidewire removed. The patient tolerated the procedure well and transferred to recovery room in stable condition. JANIE PERKINS MD PATIENT'S NAME: ISAIAS ORO [facility] AGE: 86 Y [address] ROOM: [place] [address] LOCATION: GPCU ADMIT DATE: 12/28/2016 OR/Procedure Report DISCHARGE DATE: FAMILY PHYSICIAN: Eliel Rosas MD ATTENDING PHYSICIAN: JIN JEAN/aman /[id number] d: 01/05/17 1335 t: 01/15/17 1918, OPERATIVE SUMMARY
--- NOTE | ~2016-12-28 | DS ---
PATIENT'S NAME: ISAIAS ORO [facility] AGE: 86 Y [address] ROOM: [place] [address] LOCATION: GPCU ADMIT DATE: 12/28/2016 Discharge Summary DISCHARGE DATE: 01/10/2017 FAMILY PHYSICIAN: Eliel Rosas MD ATTENDING PHYSICIAN: Jamel Willett V FINAL DIAGNOSES: 1. Left thigh spontaneous hematoma with left compartment syndrome. 2. Acute blood loss anemia secondary to left thigh spontaneous hematoma with left compartment syndrome. 3. Acute hypoxic respiratory failure. 4. Thrombocytopenia. 5. Acute diastolic congestive heart failure. 6. Chronic obstructive pulmonary disease exacerbation. 7. Diabetes mellitus type 2, insulin using. 8. Acute kidney injury on chronic kidney disease. 9. Penile edema. 10. Left leg deep venous thrombosis. 11. Right arm deep venous thrombosis. PROCEDURES: 1. He had a left fasciotomy with clot evacuation on December [address] Sims. 2. Closure of left thigh wound by Dr. Sims on January 02. 3. IVC filter placement on January [address] Rivas. 4. Cystoscopy with Nunez placement by Dr. Derek Motta on January 05. HISTORY OF PRESENT ILLNESS: For details of admission, please see the history and physical dictated by Dr. Willett. LABORATORY DATA: On admit, sodium 136, discharge 136; potassium on admit was 4.2, got as high as 5.2, most prior to discharge was 3.9; BUN on admission was 44, got as high as 72, most prior to discharge was 89; creatinine on admission was 1.2, it did steadily climb and at discharge it was 2.4. Alkaline phosphatase on admission was 39, AST 60, ALT 71, these remained stable throughout the hospital stay. ProBNP on admission was 376, on January 04 7316. Cardiac enzymes on admission were normal. Prolactin on December 29 was 3.7, TSH on admission was 1.080. White blood cell count on admission was 22.8, got as high as 46, most prior discharge 8.2; hemoglobin on admission was 8.1, got as low as 5.7 and stayed in the 5-6 range, did gradually start to climb and at discharge it was 8.9; platelet count on admission was 113, it did steadily decline, got as low as 45 on January 01, most prior discharge 105. Procalcitonin on December 30 was 3.40. Urinalysis on admission had 2-5 whites, 5-10 reds. Blood cultures on admission were negative. PATIENT'S NAME: ISAIAS ORO [facility] AGE: 86 Y [address] ROOM: [place] [address] LOCATION: GPCU ADMIT DATE: 12/28/2016 Discharge Summary DISCHARGE DATE: 01/10/2017 FAMILY PHYSICIAN: Eliel Rosas MD ATTENDING PHYSICIAN: Jamel Willett V RADIOLOGIC STUDIES: Chest x-ray on admission for line placement did not show any pneumothorax. 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 Ultrasound of the kidney on admission did not show any evidence of an obstruction. HOSPITAL COURSE: The patient was accepted in transfer from [place] for a spontaneous left thigh hematoma with compartment syndrome. The patient had been admitted to the hospital in [place] for pneumonia and was diagnosed with a DVT. He was started on anticoagulation, and when he was in the skilled setting, he was noted to have a spontaneous hemorrhage, and he was also noted to be significantly anemic. He was transferred here and stabilized from hemodynamic standpoint. He was taken the OR by Dr. Sims for fasciotomy and clot extraction. Please see his op note for details. The patient did require over that hospitalization 5 units of packed red blood cells and received 2 units of FFP. After the evacuation, there was a wound VAC placed on that. He was placed on PCU afterwards and monitored very carefully. It was felt that he was stable and he was taken back to the OR on January 04 for closure. It was felt that he should not be restarted on his anticoagulation and with a history of a clot, there was concern about whether we need to proceed with IVC filter placement. Also during this time frame, the patient was noted to have lower blood pressures and have some altered mental status. During one of these times when he received transfusions and a CT scan to evaluate his head. He was monitored, and he did have a repeat Doppler and the decision was made to have an IVC filter placed, it was felt that he was stable to proceed that way. His regular conditions were monitored. We did monitor his kidney function as it did start to rise during the hospital stay. He was put on scheduled insulin and sliding scale insulin to control his blood sugars. It was felt that he had a COPD exacerbation, he had been on IV steroids and these were weaned, and eventually was placed on p.o. medications with a taper. It was also felt that with all the fluid that he received during these procedures, that he needed to have aggressive diuresis. Unfortunately because of his significant penile edema and incontinence, we were unable to place a Nunez, he had significant skin breakdown in his perineal area. Urology did see him and did feel that he would probably need to have the Nunez placed in the OR. Once IVC filter was in place, it was felt that he was stable to proceed with a Nunez catheter placement and that was done on January 05. After his procedure, we did become very aggressive with trying to diurese the fluid, which he responded to. His creatinine remained in the 1.1-1.2 range until the day of discharge when it jumped up slightly. It was felt that he was stable for discharge and could be returned to the swing bed in [place]. His hemoglobin prior to discharge was improving, his platelet count that had dropped significantly during the hospitalization was starting to trend up as well. His blood sugars were fairly well controlled. He was alert and he was eating. PATIENT'S NAME: ISAIAS ORO [facility] AGE: 86 Y [address] ROOM: [address] [address] LOCATION: GPCU ADMIT DATE: 12/28/2016 Discharge Summary DISCHARGE DATE: 01/10/2017 FAMILY PHYSICIAN: Eliel Rosas MD ATTENDING PHYSICIAN: Jamel Willett V DISCHARGE INSTRUCTIONS: He was discharged back to the swing bed in [place]. He is weightbearing as tolerated. He is to have PT, OT, and Speech therapy. His O2 was to be titrated to keep his saturations greater than 97% on the day of discharge, he had been able to be weaned off his oxygen. Accu-Cheks q.a.c. and h.s. Have renal panel, magnesium, and CBC on January 12. MEDICATIONS: 1. Norvasc 10 mg daily. 2. Clobetasol cream, apply twice daily. 3. Avodart 0.5 mg at bedtime. 4. Duragesic patch 25 mcg, change every 72 hours. 5. Flonase 2 sprays in each nostril twice a day. 6. Furosemide 40 mg daily. 7. NovoLog moderate sliding scale. 8. NovoLog 10 units 3 times daily with meals. 9. Levemir 22 units at bedtime. 10. Levothyroxine 75 mcg daily. 11. Magnesium oxide 400 mg twice daily, last dose January 10 in the evening. 12. Lopressor 50 mg twice daily. 13. Nitro-Bid ointment 0.5 inch every 6 hours. 14. Nystatin, apply to his armpits twice daily. 15. Protonix 40 mg daily which he is to stop when he is off his prednisone. 16. MiraLAX 17 g twice daily. 17. Deltasone 10 mg daily from January 10 to January 14, then 5 mg daily from January 15 to January 19. 18. Simvastatin 20 mg daily. 19. Flomax 0.4 mg daily. 20. Effexor 75 mg twice daily. 21. Pulmicort Respules 1 inhaled twice daily. 22. DuoNeb treatments 4 times daily. 23. Tylenol 650 mg every 4 hours as needed. 24. Xanax 0.25 mg 3 times daily as needed. 25. Dulcolax suppository 10 mg daily as needed. 26. Dextrose 25 mL for hypoglycemia. 27. Colace 100 mg twice daily. 28. Glucagon 1 mg subcu for severe hypoglycemia. 29. Glucose 16 g p.o. for hypoglycemia. 30. Tums 1500 mg daily. 31. Aspirin 81 mg daily. 32. Vitamin B12 1000 mcg daily. 33. Folic acid 1 mg daily. 34. Lactulose 30 mL every day as needed for constipation. 35. Ambien 5 mg at bedtime as needed. 36. DuoNeb treatments every 4 hours as needed. PATIENT'S NAME: ISAIAS ORO [facility] AGE: 86 Y [address] ROOM: [place] [address] LOCATION: GPCU ADMIT DATE: 12/28/2016 Discharge Summary DISCHARGE DATE: 01/10/2017 FAMILY PHYSICIAN: Eliel Rosas MD ATTENDING PHYSICIAN: Jamel Willett V 37. Multivitamin daily. 38. Oxybutynin 5 mg 3 times daily. 39. ProAir HFA 2 puffs 3 times daily. 40. Razadyne 16 mg daily. 41. Vitamin C 500 mg daily. 42. Vitamin E 400 units daily. 43. Zyrtec 10 mg daily. Overall prognosis at discharge is fair. I did discuss in detail with Dr. Rosas and also spoke with his daughter Deb by phone. BROOKS LAM MD LAW/modl /[id number] CC: MD Eliel Tim MD d: 01/11/17 0244 t: 01/17/17 1815, DISCHARGE SUMMARY
--- NOTE | 2016-12-28 16:14 | NUR ---
Pt is 86 y/o male admit for DVT R)axilla and left leg and anemia for hospitalist. Ortho to consult regarding left leg. Allergies to Darvon,Ultram, and methadone. Pt resides at a custodial in [place], [place] but has recently been in the hospital in [place]. PICC in R upper arm. Pt also has left lower lobe pneumonia. Alert and oriented x3. Repositions with 2 assist. Has hx CVA-left sided weakness,htn,hyperlipids,chronic constipation, hypothyroid,bronchitis,cough. Pt is anemic as well and has received 3 units PRBC's thus far.
[2016-12-28] MEDS ORDERED: ASPIRIN LO-DOSE81 MG PO (16:25)
[2016-12-28] MEDS ORDERED: AVODART0.5 MG PO (16:26)
[2016-12-28] MEDS ORDERED: TUMS X-STR300 MG PO (16:27)
[2016-12-28] MEDS ORDERED: COLACE100 MG PO (16:28)
[2016-12-28] MEDS ORDERED: TEMOVATE30 GM TOP (16:28)
[2016-12-28] MEDS ORDERED: EFFEXOR75 MG PO (16:28)
[2016-12-28] MEDS ORDERED: VITAMIN B-121000 MCG PO (16:28)
[2016-12-28] MEDS ORDERED: FLOMAX0.4 MG PO (16:29)
[2016-12-28] MEDS ORDERED: FLONASE 50 MCG/16 GM NOSE ×2 (16:29→16:30)
[2016-12-28] MEDS ORDERED: DURAGESIC 25MC25 MCG TRANS (16:29)
[2016-12-28] MEDS ORDERED: FOLIC ACID1 MG PO (16:31)
[2016-12-28] MEDS ORDERED: THERA-VITE W/ B1 TAB PO (16:32)
[2016-12-28] MEDS ORDERED: CONSTULOSE10 GM/15 M PO (16:32)
[2016-12-28] MEDS ORDERED: MIRALAX PO527 GM/BOT PO (16:32)
[2016-12-28] MEDS ORDERED: NORVASC5 MG PO (16:33)
[2016-12-28] MEDS ORDERED: DITROPAN5 MG PO (16:33)
[2016-12-28] MEDS ORDERED: POTASSIUM CHLO20 ME2 PO (16:33)
[2016-12-28] MEDS ORDERED: RAZADYNE ER16 MG PO (16:34)
[2016-12-28] MEDS ORDERED: PROAIR HFA8.5 GM INH (16:34)
[2016-12-28] MEDS ORDERED: LEVOTHROID(SYN75 MCG PO (16:35)
[2016-12-28] MEDS ORDERED: TYLENOL325 MG PO (16:35)
[2016-12-28] MEDS ORDERED: ASCORBIC ACID500 MG PO (16:36)
[2016-12-28] MEDS ORDERED: VITAMIN E400 UNI2 PO (16:36)
[2016-12-28] MEDS ORDERED: ZOCOR20 MG PO (16:37)
[2016-12-28] MEDS ORDERED: ZAROXOLYN5 MG PO (16:37)
[2016-12-28] MEDS ORDERED: XANAX0.25 MG PO (16:37)
[2016-12-28] MEDS ORDERED: DUONEB INH (16:38)
[2016-12-28] MEDS ORDERED: ZYRTEC10 MG PO (16:38)
[2016-12-28] MEDS ORDERED: CEFEPIME HCL2 GM IV (16:39)
[2016-12-28] MEDS ORDERED: CALMOSEPTINE OI71 GM TOP (16:39)
[2016-12-28] MEDS ORDERED: NOVOLOG100 UNIT/M SUB-Q (16:40)
[2016-12-28] MEDS ORDERED: PRIMAXIN IV (16:40)
[2016-12-28] MEDS ORDERED: HUMULIN 70100 UNIT/M SUB-Q (16:40)
[2016-12-28] MEDS ORDERED: PULMICORT0.5 MG/21 INH (16:41)
[2016-12-28] MEDS ORDERED: VANCOMYCIN HCL1 GM IV (16:41)
[2016-12-28] MEDS ORDERED: LEVEMIR100 UNIT/1 SUB-Q (16:42)
[2016-12-28] MEDS ORDERED: DELTASONE20 MG PO (16:42)
[2016-12-28] MEDS ORDERED: NYSTATIN1 EAC2 TOP (16:42)
[2016-12-28] MEDS ORDERED: TOPROL XL25 MG PO (16:43)
[2016-12-28] MEDS ORDERED: LOVENOX 10100 MG/1 M SUB-Q (16:43)
[2016-12-28] MEDS ORDERED: PERCOCET 10-321 EACH PO (16:43)
[2016-12-28] MEDS ORDERED: COUMADIN ** IA5 MG PO (16:44)
[2016-12-28 16:59] LABS: BASOPHIL # 0.1 K/uL (0.0-0.2); BASOPHIL % 0.2 %; HEMATOCRIT 23.7 % (33.0-50.0); HEMOGLOBIN 8.1 g/dL (11.0-16.0); IMMATURE GRANULOCYTE # 0.7 K/uL (0.0-0.3); IMMATURE GRANULOCYTE % 3.2 %; LYMPHOCYTE # 1.7 K/uL (0.8-4.0); LYMPHOCYTE % 7.6 %; MCH 30.9 pg (27.0-34.0); MCHC 34.2 gm/dL (32.0-36.5); MCV 90.5 fl (83.0-98.0); MONOCYTE # 0.8 K/uL (0.0-1.0); MONOCYTE % 3.6 %; MPV 11.5 fl (9.4-12.4); NEUTROPHIL # (ANC) 19.4 K/uL (1.4-9.0); NEUTROPHIL % 85.4 %; NRBC % 0.6 /100WBC (0-0.00); PLATELET COUNT 113 K/uL (150-450); RBC 2.62 M/uL (3.50-5.50); RDW-CV 13.8 % (11.9-14.6)
[2016-12-28 17:05] LABS: INR - (THERAPEUTIC) 1.4 (0.9-1.1); PROTIME 15.4 SECONDS (9.6-11.1); PTT 43 SECONDS (25-32); WBC 22.8 K/uL (4.0-11.0)
[2016-12-28 17:26] LABS: ALBUMIN 2.4 gm/dL (3.5-5.0); ANION GAP 13.2 (10.0-19.0); CALCIUM 8.7 mg/dL (8.5-10.5); CREATININE 1.2 mg/dL (0.6-1.3); MAGNESIUM 1.7 mg/dL (1.3-2.6); PHOSPHORUS 3.5 mg/dL (2.5-4.9); POTASSIUM 4.2 mMol/L (3.7-5.1); TOTAL BILIRUBIN 0.5 mg/dL (0.0-1.5)
[2016-12-28 17:33] LABS: TOTAL PROTEIN 4.6 g/dL (6.0-8.4)
[2016-12-28 18:13] LABS: CPK 990 IU/L (35-332)
--- NOTE | 2016-12-28 19:10 | NUR ---
Significant Event: A/Ox3. Forgetful. SBP-140s. P-90-100s. Afebrile. 2L Nc with saturations in the mid 90s. Dyspnic with activtity. R) UA PICC. Lower L) leg edema 2-3+. Complaints of pain in L) hip given norco x1 since arrival. Patient will have IVC filter placed in AM. Ortho consulted. Ice to L) leg and call Dr. Sims if pain is not controlled.
[2016-12-29 00:48] LABS: INR - (THERAPEUTIC) 1.4 (0.9-1.1); PROTIME 14.7 SECONDS (9.6-11.1)
[2016-12-29 00:59] LABS: HEMATOCRIT 20.6 % (33.0-50.0); MCV 91.6 fl (83.0-98.0); MPV 11.2 fl (9.4-12.4); RBC 2.25 M/uL (3.50-5.50); RDW-CV 14.3 % (11.9-14.6)
[2016-12-29 01:00] LABS: WBC 31.2 K/uL (4.0-11.0)
[2016-12-29 01:01] LABS: MCH 31.1 pg (27.0-34.0); PLATELET COUNT 138 K/uL (150-450)
[2016-12-29 01:17] LABS: ANION GAP 13.7 (10.0-19.0); CALCIUM 8.7 mg/dL (8.5-10.5); CREATININE 1.2 mg/dL (0.6-1.3); POTASSIUM 4.7 mMol/L (3.7-5.1)
[2016-12-29 01:37] LABS: ABSOLUTE NEUTROPHIL CT (ANC) 26.8 K/uL (1.4-9.0); BANDED NEUTROPHIL # 3.7 K/uL (0.0-0.1); BANDED NEUTROPHILS % 12 %; LYMPHOCYTE # 3.1 K/uL (0.8-4.0); LYMPHOCYTE % 10 %; MONOCYTE # 0.6 K/uL (0.0-1.0); SEGMENTED NEUTROPHIL # 23.1 K/uL (1.4-9.0); SEGMENTED NEUTROPHIL % 74 %
[2016-12-29 03:54] LABS: HEMATOCRIT 21.1 % (33.0-50.0); HEMOGLOBIN 7.1 g/dL (11.0-16.0); MCH 31.6 pg (27.0-34.0); MCHC 33.6 gm/dL (32.0-36.5); MCV 93.8 fl (83.0-98.0); MPV 11.2 fl (9.4-12.4); PLATELET COUNT 130 K/uL (150-450); RBC 2.25 M/uL (3.50-5.50); WBC 32.8 K/uL (4.0-11.0)
[2016-12-29 04:01] LABS: INR - (THERAPEUTIC) 1.6 (0.9-1.1); PROTIME 16.9 SECONDS (9.6-11.1)
[2016-12-29 04:06] LABS: ANION GAP 19.2 (10.0-19.0); CALCIUM 8.1 mg/dL (8.5-10.5); CREATININE 1.4 mg/dL (0.6-1.3); MAGNESIUM 2.3 mg/dL (1.3-2.6); POTASSIUM 5.2 mMol/L (3.7-5.1)
[2016-12-29 05:07] LABS: ABSOLUTE NEUTROPHIL CT (ANC) 29.2 K/uL (1.4-9.0); BANDED NEUTROPHIL # 4.9 K/uL (0.0-0.1); BANDED NEUTROPHILS % 15 %; LYMPHOCYTE # 2.6 K/uL (0.8-4.0); LYMPHOCYTE % 8 %; MONOCYTE # 0.7 K/uL (0.0-1.0); SEGMENTED NEUTROPHIL # 24.3 K/uL (1.4-9.0); SEGMENTED NEUTROPHIL % 74 %
--- NOTE | 2016-12-29 07:29 | NUR ---
Significant Event: A/O x3 VSS on 2L, patient rating pain 5/10 with no relief from analgesics, emergent surgery for L)fasciotomy done by Dr. Sims, patient back to floor at 0000, stable condition with wound vac in place, 400 ml bloody output to wound vace by 0030, Dr Sims notified, patient blood pressures dropped to 90s systolically, hgb dropped to 7, CENTRIFUGAL SEPARATOR called, see documentation, Dr. Motta placed central line, patient had fecal emesis multiple times, WOC nurse replaced dressing at 0430, manual pressure was held 45mins, CENTRIFUGAL SEPARATOR called again 0315, hospitalist present, infusing 2nd unit blood, 2 units FFP given, orders to transfer to ICU Follow up: continue plan of care
[2016-12-29 07:35] LABS: HEMATOCRIT 16.8 % (33.0-50.0); HEMOGLOBIN 5.7 g/dL (11.0-16.0)
[2016-12-29 07:42] LABS: INR - (THERAPEUTIC) 1.5 (0.9-1.1); PROTIME 16.3 SECONDS (9.6-11.1)
[2016-12-29 07:50] LABS: ANION GAP 18.3 (10.0-19.0); CREATININE 1.4 mg/dL (0.6-1.3); POTASSIUM 4.3 mMol/L (3.7-5.1)
[2016-12-29 07:51] LABS: CALCIUM 7.3 mg/dL (8.5-10.5)
[2016-12-29 08:39] LABS: BICARBONATE 10.7 mmol/L (18.0-23.0); PCO2 25 mmHg (35-45); PO2 137 mmHg (80-90)
[2016-12-29 09:37] LABS: MCHC 32.9 gm/dL (32.0-36.5); MCV 90.9 fl (83.0-98.0); MPV 11.5 fl (9.4-12.4); PLATELET COUNT 108 K/uL (150-450); RDW-CV 15.4 % (11.9-14.6)
[2016-12-29 09:41] LABS: HEMATOCRIT 29.8 % (33.0-50.0); HEMOGLOBIN 9.8 g/dL (11.0-16.0); MCH 29.9 pg (27.0-34.0); RBC 3.28 M/uL (3.50-5.50)
[2016-12-29 10:16] LABS: ABSOLUTE NEUTROPHIL CT (ANC) 39.6 K/uL (1.4-9.0); BANDED NEUTROPHIL # 5.5 K/uL (0.0-0.1); BANDED NEUTROPHILS % 12 %; LYMPHOCYTE # 3.2 K/uL (0.8-4.0); LYMPHOCYTE % 7 %; MONOCYTE # 3.2 K/uL (0.0-1.0); SEGMENTED NEUTROPHIL % 74 %
--- NOTE | 2016-12-29 12:38 | NUR ---
Pt resides at [facility] but in the swingbed there for last couple weeks. WIll continue to follow.
[2016-12-29 13:11] LABS: HEMATOCRIT 26.3 % (33.0-50.0); HEMOGLOBIN 8.9 g/dL (11.0-16.0)
[2016-12-29 13:21] LABS: INR - (THERAPEUTIC) 1.4 (0.9-1.1); PROTIME 15.3 SECONDS (9.6-11.1)
[2016-12-29 14:30] LABS: HEMATOCRIT 25.1 % (33.0-50.0); HEMOGLOBIN 8.6 g/dL (11.0-16.0)
[2016-12-29 16:38] LABS: HEMATOCRIT 23.3 % (33.0-50.0); HEMOGLOBIN 8.1 g/dL (11.0-16.0); MCHC 34.8 gm/dL (32.0-36.5); MPV 11.5 fl (9.4-12.4); PLATELET COUNT 94 K/uL (150-450); RDW-CV 16.4 % (11.9-14.6)
[2016-12-29 16:48] LABS: MCV 86.3 fl (83.0-98.0); WBC 41.1 K/uL (4.0-11.0)
--- NOTE | 2016-12-29 16:51 | NUR ---
Significant Event: Patient has been A&O X3 until my last assesment, then patient was disoriented to time/place. SBP have been 60's-120's, MAP's have been 50's-low 100's, HR have been low 100's-140's. Duane is running at 0.5mcg/kg/min, LEVO is running at 0.2mcg/kg/min. Patient is on 5L NC with o2 sat mid to upper 90's. Lung sounds are Clear and diminished. Patient has got a total of 3 units of PRBC and a total of 3 units FFP. Follow up:
[2016-12-29 18:00] LABS: ABSOLUTE NEUTROPHIL CT (ANC) 34.1 K/uL (1.4-9.0); LYMPHOCYTE # 4.9 K/uL (0.8-4.0); LYMPHOCYTE % 12 %; MONOCYTE # 2.1 K/uL (0.0-1.0); SEGMENTED NEUTROPHIL # 34.1 K/uL (1.4-9.0); SEGMENTED NEUTROPHIL % 83 %
[2016-12-29 19:37] LABS: HEMATOCRIT 19.1 % (33.0-50.0)
[2016-12-29 19:40] LABS: HEMOGLOBIN 6.7 g/dL (11.0-16.0)
[2016-12-29 19:44] LABS: INR - (THERAPEUTIC) 1.3 (0.9-1.1); PROTIME 13.6 SECONDS (9.6-11.1)
[2016-12-30 00:10] LABS: HEMATOCRIT 20.4 % (33.0-50.0)
[2016-12-30 00:13] LABS: HEMOGLOBIN 7.1 g/dL (11.0-16.0)
[2016-12-30 04:35] LABS: ANION GAP 14.4 (10.0-19.0); PHOSPHORUS 3.3 mg/dL (2.5-4.9); POTASSIUM 4.4 mMol/L (3.7-5.1); TOTAL BILIRUBIN 1.2 mg/dL (0.0-1.5); TOTAL PROTEIN 3.8 g/dL (6.0-8.4)
[2016-12-30 04:39] LABS: HEMOGLOBIN 6.6 g/dL (11.0-16.0)
[2016-12-30 04:44] LABS: INR - (THERAPEUTIC) 1.1 (0.9-1.1); PROTIME 11.9 SECONDS (9.6-11.1)
--- NOTE | 2016-12-30 07:09 | NUR ---
Significant Event: DROWSY, CONFUSED STATEMENTS. FOLLOWS COMMANDS AT TIMES. HAS RESTED FOR SEVERAL HOURSE OVERNIGHT. MORPHINE GIVEN FOR PAIN, 1MG, LAST AT 2345, NO FURTHER C/O PAIN. HR 90-110'S. WEANED MARGI OFF. WEANED LEVO TO 0.14MCG/KG/MIN. INCREASED EDEMA. 5L O2. NO BM OVERNIGHT. NPO. INCONTINENT OF URINE X1. DR. PERKINS ATTEMPTED TO PLACE [place], WAS UNSUCESSFUL. TREATED ACCUCHECK X1. GAVE 1 UNIT PRBC'S, 1 UNIT OF FFP. 450ML OF OUTPUT FROM WOUND VAC. LEAKED FROM SITE. WOC AND DR. DAWSON AWARE OF BLEEDING. BATH COMPLETE. SHAVED. FAMILY HAD MANY QUESTIONS REGARDING COMFORT CARES AND PROGNOSIS. HAD DR. FARIA SPEAK WITH FAMILY AT LENGTH LAST NIGHT. THEY WILL CONTINUE WITH CARES FOR NOW. PALLIATIVE CARE TO SEE TODAY. Follow up: PALLIATIVE CARE CONSULT. MONITOR BLEEDING.
[2016-12-30 10:37] LABS: HEMATOCRIT 21.1 % (33.0-50.0)
[2016-12-30 10:38] LABS: HEMOGLOBIN 7.4 g/dL (11.0-16.0)
[2016-12-30 13:05] LABS: INR - (THERAPEUTIC) 1.1 (0.9-1.1); PROTIME 11.5 SECONDS (9.6-11.1)
--- NOTE | 2016-12-30 13:38 | NUR ---
NUTRITION CONSULT RECEIVED FOR TF RECOMMENDATIONS FOR POSSIBLE NG PLACEMENT. IF ENTERAL NUTRITION DESIRED, RECOMMEND JEVITY 1.5 AT A GOAL RATE OF 55 ML/HR. START AT 10 ML/HR AND ADVANCE BY 10-20 ML EVERY 4 HOURS, OR PT TOLERATES TO GOAL. RECOMMEND 170 ML WATER FLUSH EVERY 4 HOURS.
--- NOTE | 2016-12-30 13:43 | NUR ---
A-NUTRITION F/U CBW 87.1 KG; ADMIT WT 71.3 KG. EXPECT TO SEE SOME WT LOSS D/T START OF DIALYSIS. TUNNELED DIALYSIS CATHETER PLACED; DIALYSIS ON 12/29 AND TODAY PT HAD BEEN REFUSING ALL TX, BUT HAS AGREED TO ALLOW TXS, PER CHART REVIEW. 12/29 DID NOT PASS SWALLOW STUDY LABS: NA 138, K+ 3.5, GLU 87, BUN 41, HAZMAT TECHNICIAN 4.0, ALB 3.2 MEDS: LEVOPHED, LEVEMIR (ADJ.), ZOSYN DIET RX: NPO EST NUTR NEEDS: [id number] KCALS AND 78-100 GM PROTEIN D-AT NUTRITION RISK W/INADEQUATE NUTRIENT INTAKE R/T POOR APPETITE, DIFF. SWALLOWING AEB NPO STATUS, SPEECH EVAL, INTAKE RECORDS. I-IF ORAL DIET IS UNABLE TO RESUME, RECOMMEND ENTERAL NUTRITION. RECOMMEND NEPRO AT A GOAL RATE OF 50 ML/HR. THIS WILL PROVIDE 2160 KCALS, 98 GM PROTEIN, AND 872 ML FREE WATER. M/E-GOAL: START APPROPRIATE NUTRITION RX WITHIN 24-48 HOURS. 1)F/U DIET RX AND POC IN 2-3 DAYS 2)ASSIST NEEDED
--- NOTE | 2016-12-30 14:43 | NUR ---
D: Physical Therapy Note. I: Due to patient surgery and move to ICU after initial Physical Therapy order on 12/28/16, I spoke with Dr. Suarez this morning regarding beginning Physical Therapy with this patient. Dr. Suarez states to clarify with Dr. Sims prior to initiating Physical Therapy with patient. Patient's nurse states she will speak with Dr. Sims when he rounds on the patient regarding Physical Therapy orders. P: Await orders from Dr. Sims before beginning Physical Therapy with patient in ICU. 12/30/16 Aleks MullinsPT
--- NOTE | 2016-12-30 15:47 | NUR ---
ST note - Reviewed patient's chart and visited w/ nursing in a.m. and p.m.. I do not feel pt is adequately alert and able to participate in a Bedside Swallow Evaluation at this time. Plan - review case/chart and visit w/ RN's tomorrow for update. 12/30/16 Walt GALVAN MS CCC/STREET INSPECTOR
--- NOTE | 2016-12-30 16:26 | NUR ---
Significant Event:Patient is very drowsy,awakes easily but needs constant stimulation to stay awake. Inconsistent with orientation, never oriented to time. CT of head today d/t drowsiness. SR occasional PAC and PVS with HR 80-90's. Levophed gtt off at 1015. MAP 60-80's. 1 unit PRBC given this am, follow up hgb was 7.4. H/H now q6h. Radial pulses 2+, pedal and post tib pulses doppled easily. Left leg 3+edema, had a total of 300ml bloody drainage from woundvac, minimal drainage around dressing site. No alarms with woundvac machine. Titrate from 5L NC to 4L NC. Lungs asculated diminished on the right side and clear/dim on the left side. NPO, no oral meds. Speech consulted but will reevaluate tomorrow if patient is more alert. Incontinent x3. Active bowel sounds, no BM. Patient abdomen is distended and slightly firm, no change from begining of shift. No prn pain medications given. AFebrile. Changed to IV insulin gtt for a period of time today for BS of 280. Blood sugar down to 97, insulin gtt off and to restart moderate SSI with q4h accuchecks. Follow up:Continue to monitor, will recheck next H/H at 1700.
[2016-12-30 18:13] LABS: HEMATOCRIT 19.6 % (33.0-50.0)
[2016-12-30 18:16] LABS: HEMOGLOBIN 6.9 g/dL (11.0-16.0)
[2016-12-30 23:32] LABS: HEMATOCRIT 21.8 % (33.0-50.0)
[2016-12-30 23:34] LABS: HEMOGLOBIN 7.5 g/dL (11.0-16.0)
[2016-12-31 04:29] LABS: ANION GAP 13.5 (10.0-19.0); CREATININE 2.1 mg/dL (0.6-1.3); MAGNESIUM 2.3 mg/dL (1.3-2.6); POTASSIUM 3.5 mMol/L (3.7-5.1)
[2016-12-31 04:30] LABS: ALBUMIN 1.8 gm/dL (3.5-5.0); CALCIUM 6.8 mg/dL (8.5-10.5); TOTAL PROTEIN 3.8 g/dL (6.0-8.4)
[2016-12-31 04:33] LABS: HEMOGLOBIN 7.6 g/dL (11.0-16.0); MCH 30.3 pg (27.0-34.0); MCHC 34.5 gm/dL (32.0-36.5); MCV 87.6 fl (83.0-98.0); MPV 10.2 fl (9.4-12.4); PLATELET COUNT 46 K/uL (150-450); RBC 2.51 M/uL (3.50-5.50); RDW-CV 16.9 % (11.9-14.6); WBC 14.4 K/uL (4.0-11.0)
--- NOTE | 2016-12-31 04:39 | NUR ---
Significant Event: Patient drowsy. A/O to self and place at times. Confused at times. VSS. O2 titrated down to 2L NC. Incontinent of urine. Wound vac with 75ml of bloody drainage. Doppler pulses. Rested well, only awakens to stimuli. Family here for short period of time. Turn q2h. 1 unit PRBC given. q4h Accucheck. Follow up: Transfer
[2016-12-31 05:46] LABS: BANDED NEUTROPHILS % 7 %; LYMPHOCYTE # 1.2 K/uL (0.8-4.0); LYMPHOCYTE % 8 %; MONOCYTE # 0.3 K/uL (0.0-1.0); SEGMENTED NEUTROPHIL % 83 %
[2016-12-31 13:47] LABS: HEMATOCRIT 22.5 % (33.0-50.0)
[2016-12-31 13:49] LABS: HEMOGLOBIN 7.9 g/dL (11.0-16.0)
--- NOTE | 2016-12-31 16:44 | NUR ---
Significant Event:Patient is A/Ox3, follows all commands. Still a little sleepy. SR and occasional PAC's with HR 80-90's.SBP 130-150's, PRN hydralazine for SBP>170. Afebrile. Clear/diminished lung sounds asctultated on 2L NC.SPO@ >92%. CXRO done this am for diminished lung right loung sounds. Hypoactive bowel sounds, prn colace given. Speech evaled today and ordered pureed diet. Patient appeared to choke/cough on food periodically and had a very hard time getting crushed medications with applesauce swallowed. Was unable to get all of crushed medications swallowed. Patient is now NPO. Modified barium swallow in am. Easily dopple distal pulses. Left leg warm, wound vac remains intact, with 50ml bloody drainage this shift. h/h q12h, next draw at 0500. Follow up:to OR tomorrow to close left leg incision. modified barium swallow.NPO after midnoc.
[2017-01-01 04:57] LABS: ANION GAP 15.4 (10.0-19.0); CREATININE 2.2 mg/dL (0.6-1.3); MAGNESIUM 2.5 mg/dL (1.3-2.6); POTASSIUM 3.4 mMol/L (3.7-5.1)
[2017-01-01 04:58] LABS: CALCIUM 7.1 mg/dL (8.5-10.5)
--- NOTE | 2017-01-01 05:02 | NUR ---
Significant Event: Patient alert/oriented x3. Does make forgetful comments at times. VSS. Titrated up to 4L NC. Becomes SOB with turning. Remains NPO. Incontinent of urine. Elevating scrotum and heels. Wound vac continues to run without complications. Small amount of bloody drainage in tubing, no measureable output. No family or visitors this shift. Follow up: Continue to monitor. Plan for OR today with Dr. Sims for left leg
[2017-01-01 05:08] LABS: BASOPHIL % 0.2 %; HEMATOCRIT 22.9 % (33.0-50.0); IMMATURE GRANULOCYTE # 0.3 K/uL (0.0-0.3); IMMATURE GRANULOCYTE % 2.4 %; LYMPHOCYTE # 0.7 K/uL (0.8-4.0); LYMPHOCYTE % 5.4 %; MCV 91.2 fl (83.0-98.0); MONOCYTE # 0.5 K/uL (0.0-1.0); MONOCYTE % 3.9 %; MPV 10.6 fl (9.4-12.4); NEUTROPHIL % 88.1 %; NRBC % 1.3 /100WBC (0-0.00); RBC 2.51 M/uL (3.50-5.50); RDW-CV 17.8 % (11.9-14.6); WBC 12.4 K/uL (4.0-11.0)
[2017-01-01 05:12] LABS: HEMOGLOBIN 7.7 g/dL (11.0-16.0); MCH 30.7 pg (27.0-34.0); MCHC 33.6 gm/dL (32.0-36.5); PLATELET COUNT 45 K/uL (150-450)
[2017-01-01 11:13] LABS: BICARBONATE 21.7 mmol/L (18.0-23.0); PCO2 32 mmHg (35-45); PO2 79 mmHg (80-90)
--- NOTE | 2017-01-01 15:19 | NUR ---
Introduced myself and role of care management to pt this am. He states unsure of the plan and his daughter is not here yet. [facility]. I then got a call from Elvia the [facility] coordinator and gave her an update and she did state the can swingbed him or skill under end of life cares as well also if needed. Her direct line is [phone].
--- NOTE | 2017-01-01 16:53 | NUR ---
Significant Event:Patient is A/Ox3.Follows all commands. SR iwth HR 80-90's SBP 130-160's. Diminished lung sounds ascultated on the right side.Clear/diminished on the right side. Remains on 4L NC, unable to titrate down. Modified barium swallow done and passed, may have pureed diet with thin liquid. Crush meds and give in applesauce. NPO after midnoc for OR in am.Abebrile. H/H q12h.Accuchecks q4h, treated x4. Follow up:transfer to pcu
[2017-01-01 17:30] LABS: HEMOGLOBIN 7.9 g/dL (11.0-16.0)
[2017-01-02 04:06] LABS: ALBUMIN 2.1 gm/dL (3.5-5.0); ANION GAP 14.2 (10.0-19.0); CREATININE 2.2 mg/dL (0.6-1.3); MAGNESIUM 2.4 mg/dL (1.3-2.6); PHOSPHORUS 2.4 mg/dL (2.5-4.9); POTASSIUM 3.2 mMol/L (3.7-5.1); TOTAL BILIRUBIN 1.1 mg/dL (0.0-1.5)
[2017-01-02 04:07] LABS: CALCIUM 7.1 mg/dL (8.5-10.5)
[2017-01-02 04:08] LABS: TOTAL PROTEIN 4.5 g/dL (6.0-8.4)
[2017-01-02 04:10] LABS: BASOPHIL % 0.1 %; EOSINOPHIL % 0.1 %; HEMATOCRIT 23.4 % (33.0-50.0); IMMATURE GRANULOCYTE # 0.2 K/uL (0.0-0.3); IMMATURE GRANULOCYTE % 2.1 %; LYMPHOCYTE # 0.5 K/uL (0.8-4.0); LYMPHOCYTE % 4.3 %; MCV 91.8 fl (83.0-98.0); MONOCYTE # 0.4 K/uL (0.0-1.0); MONOCYTE % 3.7 %; MPV 11.2 fl (9.4-12.4); NEUTROPHIL # (ANC) 10.3 K/uL (1.4-9.0); NEUTROPHIL % 89.7 %; NRBC % 0.8 /100WBC (0-0.00); RBC 2.55 M/uL (3.50-5.50); RDW-CV 19.2 % (11.9-14.6); WBC 11.5 K/uL (4.0-11.0)
[2017-01-02 04:24] LABS: HEMOGLOBIN 7.9 g/dL (11.0-16.0); MCHC 33.8 gm/dL (32.0-36.5); PLATELET COUNT 54 K/uL (150-450)
--- NOTE | 2017-01-02 05:10 | NUR ---
Significant Event: A/O x3, garbled/slow speech from CVA, L) side weakness, SBP 140-160s, HR 70-80s, 3L O2, afebrile, pain only with repositioning, wound vac had no measurable output as blood was pooling into tegaderm outside of sponge, able to drain into gauze a moderate amount throughout the shift, incontinent of urine, suppository given with moderate bm x2, NS-75ml/hr, accuchecks Q4hr with sugars in 200s, good apetite, able to feed self with supervision, pills crushed in applesauce, has been NPO since CT for possible surgery today, Hgb stable, repositioned Q2hrs, full lift to transfer Follow up: continue plan of care
--- NOTE | 2017-01-02 14:02 | NUR ---
A-NUTRITION F/U HX OF CVA W/L SIDED WEAKNESS 12/28-EMERGENT LLE FASCIOTOMY. TO OR TODAY FOR L)THIGH WOUND CLOSURE 01/01 PASSED MBS; PUREED DIET W/THIN LIQUIDS STARTED. PT HAD 100% OF DINNER LAST EVENING. FED SELF W/SUPERVISION LABS: NA 145, K+ 3.2, GLU 187, BUN 66, STRESS TEST TECHNICIAN 2.2, ALB 2.1 DIET RX: NPO D/T OR TODAY EST NUTR NEEDS: 7525-6510 KCALS AND 88-105 GM PROTEIN D-AT NUTRITION RISK W/INCREASED NUTRIENT NEEDS R/T HEALING AEB L)THIGH WOUND I-WILL START ENSURE ENLIVE TID W/MEALS TO PROVIDE ADDITIONAL NUTRIENTS M/E-GOAL: PO INTAKE >/=50% BY NEXT F/U 1)F/U PO INTAKE, SUPPLEMENT, SKIN, AND POC IN 2-3 DAYS 2)ASSIST NEEDED
--- NOTE | 2017-01-02 15:22 | NUR ---
Introduced self and role of care management to pt's daughter Deb. [facility] town but planning to head back later today. She states he still needs to have a filter placed. SHe states his home is the [facility] home but would like him to go to the swingbed for a short stay prior at the [facility]. I will fax initial information because I did speak with Elvia phone is [phone].
--- NOTE | 2017-01-02 16:55 | NUR ---
Significant Event: TO OR @ 0955, RETURNED @ 1505. ORIENTED X3. SLEEPY POST-OP. DENIES PAIN EXCEPT DURING TURNS. LEFT LEFT WITH SUTURES, MEPILEX AND BURT WRAP PRESENT, NO DRAINAGE NOTED. INCONTINENT OF URINE. RIGHT UPPER FA PICC SL'D. RIGHT SUBCLAV CENTRAL LINE WITH NS @ 75 ML/HR. O2 @ 2L NC. Follow up: CONTINUE TO MONITOR CLOSELY.
[2017-01-02 18:54] LABS: HEMATOCRIT 24.4 % (33.0-50.0)
--- NOTE | 2017-01-03 04:23 | NUR ---
Significant Event: A/O x3, drowsy from surgery at beginning of shift, patient awoke to eat and able to feed himself with minimal assist, SBP 130-140s, HR 70-80s, increased O2 to 4L to keep sats >90%, afebrile, pain only with repositioning, lungs clear/diminished, incontinent of urine, ointment to groin/scrotum, dressing+daniel wrap C.D.I to L) leg, no drainage noted, patient became restless around 0200, making statements like "there are bad people here with the Doctors""we need to get out to be safe" xanax given and patient has been more calm since, repositioned Q2hr, accuchecks 149-235 Follow up: continue to monitor
[2017-01-03 05:48] LABS: ANION GAP 12.1 (10.0-19.0); CREATININE 2.1 mg/dL (0.6-1.3); MAGNESIUM 2.3 mg/dL (1.3-2.6); PHOSPHORUS 2.4 mg/dL (2.5-4.9); POTASSIUM 3.1 mMol/L (3.7-5.1)
[2017-01-03 05:51] LABS: CALCIUM 7.1 mg/dL (8.5-10.5)
[2017-01-03 06:10] LABS: BASOPHIL % 0.2 %; EOSINOPHIL % 0.2 %; HEMATOCRIT 24.4 % (33.0-50.0); IMMATURE GRANULOCYTE # 0.2 K/uL (0.0-0.3); IMMATURE GRANULOCYTE % 1.7 %; LYMPHOCYTE # 0.5 K/uL (0.8-4.0); LYMPHOCYTE % 4.7 %; MCH 30.4 pg (27.0-34.0); MCHC 32.8 gm/dL (32.0-36.5); MCV 92.8 fl (83.0-98.0); MONOCYTE # 0.4 K/uL (0.0-1.0); MONOCYTE % 3.4 %; MPV 11.2 fl (9.4-12.4); NEUTROPHIL # (ANC) 9.7 K/uL (1.4-9.0); NEUTROPHIL % 89.8 %; NRBC % 0.3 /100WBC (0-0.00); RBC 2.63 M/uL (3.50-5.50); WBC 10.7 K/uL (4.0-11.0)
[2017-01-03 06:13] LABS: PLATELET COUNT 65 K/uL (150-450)
--- NOTE | 2017-01-03 13:57 | NUR ---
TRANSFER NOTE: ALERT. SOME CONFUSION TO PLACE. REALIZES IT IS DAYTIME. KNEW IT WAS SPRING. AFEBRILE. HR PACED IN 60'S. SBP 129-147. HARD OF HEARING. SATS 94% ON ROOM AIR. LT. SUBCLAVIAN PACER SITE, DRESSING C/D/I. LT. ARM IMMOBILIZER IN PLACE. CONT. PLAN OF CARES MT. AGUIRRE
--- NOTE | 2017-01-03 17:50 | NUR ---
Significant Event: ALERT. ABLE TO FEED SELF, BUT NEEDS SUPERVISION. RT. PICC LINE AND RT. SUBCLAVIAN LINE INTACT, GOOD BLOOD RETURNS. AFEBRILE. HR SR WITH PVC'S AND PAC'S, RATES 80'S. SATS 93% ON 4 LPM 02. ONE25% ALBUMIN, KCL LIQUID X 2 TODAY. K+3.1 Follow up: PLAN IVC PER DR. DICK IN A.M. AT 0800. PATIENT HAS HIS OWN C-PAP MACHINE BROUGHT IN BY FAMILY. ALSO, HAS LT. WRIST/HAND BRACE AND LT. LEG BRACE BROUGHT IN.
[2017-01-04 04:18] LABS: ALBUMIN 2.5 gm/dL (3.5-5.0); CREATININE 2.2 mg/dL (0.6-1.3); POTASSIUM 3.2 mMol/L (3.7-5.1)
[2017-01-04 04:31] LABS: ANION GAP 13.2 (10.0-19.0); CALCIUM 7.3 mg/dL (8.5-10.5)
[2017-01-04 04:37] LABS: HEMATOCRIT 23.7 % (33.0-50.0); MCH 30.4 pg (27.0-34.0); MCHC 32.5 gm/dL (32.0-36.5); MCV 93.7 fl (83.0-98.0); MPV 11.7 fl (9.4-12.4); PLATELET COUNT 68 K/uL (150-450); RBC 2.53 M/uL (3.50-5.50); RDW-CV 20.9 % (11.9-14.6); WBC 9.2 K/uL (4.0-11.0)
[2017-01-04 04:40] LABS: HEMOGLOBIN 7.7 g/dL (11.0-16.0)
[2017-01-04 05:01] LABS: ABSOLUTE NEUTROPHIL CT (ANC) 8.2 K/uL (1.4-9.0); LYMPHOCYTE # 0.6 K/uL (0.8-4.0); LYMPHOCYTE % 6 %; MONOCYTE # 0.4 K/uL (0.0-1.0); SEGMENTED NEUTROPHIL # 8.2 K/uL (1.4-9.0); SEGMENTED NEUTROPHIL % 89 %
--- NOTE | 2017-01-04 05:16 | NUR ---
Significant Event: ALERT AND ORIENTED. VSS, 4L NC OXYGEN,SATS>90%. PT C/O PAIN WITH MOVEMENT AND FREQUENT REPOSITIONING, TYLENOL, MORPHINE, AND PERCOCET GIVEN. PT IS INCONT OF URINE AND STOOL WITH SIGNIFICANT SKIN BREAKDOWN. VERBAL ORDER TO PLACE PRASAD BY HOSPITALIST. 2 UNSUCCESSFUL ATTEMPTS. MAY NEED UROLOGY TO PLACE. LLE SURGERY SITE IS CDI WRAPPED IN BURT. Follow up: CONT WITH PLAN OF CARE
--- NOTE | 2017-01-04 10:38 | NUR ---
A - NUTRITION F/U. NO NEW LABS. PT W/ 2+ UE EDEMA AND 1-3+ TO BLE. DIET: PUREE W/ ENSURE TID. INTAKE 25-100%. FEEDS SELF W/ MIN SUPERVISION. D - INADEQUATE INTAKE AT TIMES R/T DECREASED APPETITE AEB INTAKE RECORD. I - GOAL: 50-75% OR BETTER INTAKE. M/E - ENCOURAGE MEAL/SUPPLEMENT INTAKE. F/U IN 3-5 DAYS.
--- NOTE | 2017-01-04 13:44 | NUR ---
I did talk with Dr Hampton and she is thinking maybe pt can go to the [facility] tomorrow or Sunday. I then called and left a vm with Elvia at the [facility] and faxed updated information. WIll continue to follow.
--- NOTE | 2017-01-04 17:58 | NUR ---
Significant Event: ALERT. PATIENT AWARE OF HIS SURROUNDINGS. AND IS COOPERATIVE WITH CARES. IVC PLACED VIA LT. GROIN. CONT. ON 4 LPM NC. SATS 92%. FENTANYL PATCH IN PLACE. Follow up: CONT. TO MONITER
[2017-01-04 20:01] LABS: CALCIUM 7.6 mg/dL (8.5-10.5); CREATININE 2.2 mg/dL (0.6-1.3)
[2017-01-04 20:11] LABS: ANION GAP 16.4 (10.0-19.0); POTASSIUM 4.4 mMol/L (3.7-5.1)
[2017-01-05 04:12] LABS: ALBUMIN 2.8 gm/dL (3.5-5.0); CALCIUM 7.7 mg/dL (8.5-10.5); CREATININE 2.1 mg/dL (0.6-1.3)
[2017-01-05 04:14] LABS: PHOSPHORUS 1.8 mg/dL (2.5-4.9)
[2017-01-05 04:30] LABS: HEMATOCRIT 24.1 % (33.0-50.0); MCH 30.3 pg (27.0-34.0); MCV 94.9 fl (83.0-98.0); PLATELET COUNT 68 K/uL (150-450); RBC 2.54 M/uL (3.50-5.50); RDW-CV 20.7 % (11.9-14.6)
--- NOTE | 2017-01-05 04:41 | NUR ---
Significant Event: alert & oriented. VSS. Weaned oxygen from 4L NC to 2L, sats > 90%. C/o pain to scrotum with pericare and re-positioning. bed bath this shift. Pt given percocet and xanax. L leg dressing to surgical site is CDI, daniel wrap. NPO after midnight Follow up:Cysto this morning
[2017-01-05 04:42] LABS: HEMOGLOBIN 7.7 g/dL (11.0-16.0)
[2017-01-05 05:33] LABS: ABSOLUTE NEUTROPHIL CT (ANC) 7.4 K/uL (1.4-9.0); BANDED NEUTROPHIL # 0.8 K/uL (0.0-0.1); BANDED NEUTROPHILS % 10 %; LYMPHOCYTE # 0.2 K/uL (0.8-4.0); LYMPHOCYTE % 2 %; MONOCYTE # 0.3 K/uL (0.0-1.0); SEGMENTED NEUTROPHIL # 6.6 K/uL (1.4-9.0); SEGMENTED NEUTROPHIL % 83 %
[2017-01-05 09:04] LABS: BILIRUBIN URINE NEGATIVE (NEGATIVE); BLOOD URINE 250 /UL (NEGATIVE); COLOR URINE YELLOW (YELLOW); GLUCOSE URINE 100 mg/dL (NEGATIVE); KETONE URINE NEGATIVE (NEGATIVE); LEUKOCYTES URINE NEGATIVE /UL (NEGATIVE); NITRITE URINE NEGATIVE (NEGATIVE); PH URINE 6.5 (4.0-8.0); PROTEIN URINE 30 mg/dL (NEGATIVE); UROBILINOGEN URINE NORMAL (NORMAL)
[2017-01-05 09:05] LABS: TURBIDITY URINE 1+ (CLEAR)
[2017-01-05 09:07] LABS: BACTERIA URINE FEW (NEGATIVE); MUCUS URINE 1+ (NEGATIVE); YEAST URINE MANY (NEGATIVE)
--- NOTE | 2017-01-05 12:17 | NUR ---
I got a vm from [facility] this am and she stated they could not accept till Sunday if ready. She had some medical question for me so I did call her back but had to leave another vm. I spoke with DR Hampton and will plan Sunday or Sunday to the [facility] with Dr Kang accepting. Dr Hampton stated she will update the daughter on the plan. I will fax updates again today.
--- NOTE | 2017-01-05 12:52 | NUR ---
I did talk with Elvia at the swingbed and updated her and yes will hopefully plan on transfer early next week. She will talk with doctor on Sunday because he is out for the weekend.
[2017-01-05 16:57] LABS: ANION GAP 12.7 (10.0-19.0); CALCIUM 7.5 mg/dL (8.5-10.5); CREATININE 2.2 mg/dL (0.6-1.3); POTASSIUM 3.7 mMol/L (3.7-5.1)
--- NOTE | 2017-01-05 17:33 | NUR ---
Significant Event: Patient A/O x 3. Forgetful at times. Garbled speech (partly due to constant dry mouth and slight sore throat). Full lift. Dangled at side of bed twice today, and then lifted to the chair about 1655. Patient's HR's fluctuating this afternoon from 80-90's to 140's. Gave one dose of IV digoxin and then PO dose of metoprolol. Increasing scheduled metoprolol dose as well. Started on albumin/bumex routine. Good UOP. Cystoscopy today per Dr. Motta. DO NOT REMOVE PRASAD WITH MD ORDER. Good UOP. Slightly pink-tinged. R)subclavian and R)PICC line (both dual lumen) saline locked. Caps changed. Good blood return. Denies pain throughout the day. ACHS accu checks. Aspiration precautions and 1:1 feeder. Follow up: Continue as per plan of care. Monitor heart rates. Continue diuresis. Encourage activity.
[2017-01-06 04:47] LABS: ALBUMIN 3.4 gm/dL (3.5-5.0); ANION GAP 13.6 (10.0-19.0); CALCIUM 7.9 mg/dL (8.5-10.5); CREATININE 2.1 mg/dL (0.6-1.3); MAGNESIUM 1.9 mg/dL (1.3-2.6); POTASSIUM 3.6 mMol/L (3.7-5.1)
[2017-01-06 04:51] LABS: PHOSPHORUS 1.4 mg/dL (2.5-4.9)
--- NOTE | 2017-01-06 05:26 | NUR ---
Significant Event: A/O. Confused at times. Afebrile. Denies pain. VSS on 3-4L w/ cpap. LS c/dim. BURT wrap on left leg c/d/i. Bright red groin, periarea, applied ointment and cream to sites. 2600 uop. Urine bright yellow. HRs in 70-80s. L) arm brace applied. Rt subc and rt PICC both flush well and good blood return. Turn q 2 hours. Follow up: Continue to monitor per plan of care.
--- NOTE | 2017-01-06 18:56 | NUR ---
Significant Events: Patient is A&Ox3. Patient has left sided weakness from history of CVA. Patient is a one-to-one feeder with medications crushed in applesauce. Vital signs: HR 80's, SBP 130-140's. Started on Nitrobid today. Last patch placed to R)abdomen. R)subclavian central line double lumen and R)picc line double lumen SL. Good blood return. Gave IV Venofertoday. Tolerated being up in the chair for about 3 hours. L)thigh dressing remains unchanged. Scrotum weaping. Good UOP out of wolf. On Albumin/Bumex routine to help with diuresis. Gave Tylenol at 1800, in addition to colace for abdominal/bloating pains. Follow-up: Contine as per plan of care. Continue diuresis. Continue to monitor labs and vitals.
--- NOTE | 2017-01-07 04:58 | NUR ---
Significant events: Pt A/Ox3, repetitive and difficult to understand at times. VSS. No complaints of pain. Repositioned Q2H. L) thigh surgical site covered wtih BURT wrap, no drainage noted. Eccymotic throughout body, mostly to L) side. R) subclavian central line in place, R) upper arm picc in place, good blood return all lumens. Foely in place, 3L off, penis and scrotum eccymotic and edematous. CPAP at night. 4-6L/NC. Albumin and bumex continue. Nitrobid patch to L) chest. ACHS accucheck and carb count. Slept most of shift. PICC dressing changed, caps changed. L) arm brace in place.
[2017-01-07 13:43] LABS: HEMATOCRIT 24.8 % (33.0-50.0); HEMOGLOBIN 7.9 g/dL (11.0-16.0); MCH 30.5 pg (27.0-34.0); MCHC 31.9 gm/dL (32.0-36.5); MCV 95.8 fl (83.0-98.0); MPV 11.6 fl (9.4-12.4); PLATELET COUNT 80 K/uL (150-450); RBC 2.59 M/uL (3.50-5.50); RDW-CV 20.1 % (11.9-14.6); WBC 7.2 K/uL (4.0-11.0)
[2017-01-07 13:57] LABS: ALBUMIN 4.3 gm/dL (3.5-5.0); ANION GAP 14.7 (10.0-19.0); CALCIUM 8.3 mg/dL (8.5-10.5); CREATININE 2.4 mg/dL (0.6-1.3); POTASSIUM 3.7 mMol/L (3.7-5.1)
[2017-01-07 14:12] LABS: ABSOLUTE NEUTROPHIL CT (ANC) 6.1 K/uL (1.4-9.0); BANDED NEUTROPHIL # 0.7 K/uL (0.0-0.1); BANDED NEUTROPHILS % 10 %; LYMPHOCYTE # 0.4 K/uL (0.8-4.0); LYMPHOCYTE % 6 %; MONOCYTE # 0.4 K/uL (0.0-1.0); SEGMENTED NEUTROPHIL # 5.3 K/uL (1.4-9.0); SEGMENTED NEUTROPHIL % 74 %
--- NOTE | 2017-01-07 17:07 | NUR ---
Signigicant Events: Patient is A&Ox3, but is slow to respond. He presents with left-sided weakness due to history of CVA. He is a full lift. Vital signs: HR 70's, SBP 130-160. Has Nitrobid to left chest and Fentanyl patch to right upper arm. Patient denies pain. Patient alternates between 4L nasal cannula and 4L CPAP. Nunez present. Patient had a large, incontinent BM this morning. Patient has a PICC in the right arm and a right subclavian. Subclavian dressing was changed at 1645. He is a 1:1 feeder on a pureed diet and meds crushed in applesauce. Also on a 1500 ml fluid restriction. Dangled with PT for three minutes. Follow Up: Continue as per plan of care. Monitor renal function. Possibly back to [facility] Sunday or Sunday.
--- NOTE | 2017-01-08 04:27 | NUR ---
Significant events: Pt A/Ox3, speech grabled/slow to respond at times. VSS. No complaints of pain. 2-4L/NC, CPAP when asleep. Turned Q2H. R) subclavian central line and R) upper arm PICC in place. Subclavian dressing had to be replaced d/t accidentaly removal by patient. Nunez in place, 3100mL out. IV lasix given. Meds crushed in applesauce. ACHS accucheck. Nitrobid patch to R) chest. 1500mL fluid restriction. L) thigh surgical site covered with BURT wrap. Follow up: back to long term Sunday.
[2017-01-08 05:37] LABS: CALCIUM 8.4 mg/dL (8.5-10.5); CREATININE 2.3 mg/dL (0.6-1.3); PHOSPHORUS 2.1 mg/dL (2.5-4.9); POTASSIUM 3.7 mMol/L (3.7-5.1)
[2017-01-08 05:41] LABS: ANION GAP 12.7 (10.0-19.0)
--- NOTE | 2017-01-08 12:25 | NUR ---
I did call and left a vm with Elvia at [facility] explaining plan tomorrow or Sunday for transfer. I did touch base with pt and he agree's to this as well. I also left a vm for daughter Deb. I did fax updated information as well. WIll continue to follow.
--- NOTE | 2017-01-08 12:26 | NUR ---
Introduced self and role of care management to pt's . She states he is at [facility] and plan is to return when ready. She states they take him to dialysis -- at 1100. She did ask if he would qualify for a skilled medicare stay and I explained it looks like he is observation status but will need to look at the chart before I can confirm everything. She did understand. Will continue to follow.
--- NOTE | 2017-01-08 15:39 | NUR ---
I did meet with pt's daughter today and plan to the swingbed tomorrow and she agree's. I explained he will need to go by ambulance but can not guarantee the coverage but will fill out a medical necessity form but also has medicaid as well. She understands and is ok with using our ambulance to get there. I did also talk with Elvia and they will accept and to call Dr Dimitry Kang [phone]. Note on the chart and questions to address as well on discharge for the swingbed.
--- NOTE | 2017-01-08 17:29 | NUR ---
Significant Event: Alert and oriented X 3. Slow to answer. 2L O2 by nasal cannula. Cpap at night. Nunez intact, urology placed. SBP 130's, 140's and 150's. HR 70's and 80's. ACHS accu check 170, 244, and 227. Double lumen PICC right upper arm, flushes well, good blood return. Double lumen PICC right subclavian, flushes well, good blood return. Mepilex dressing to right thigh, clean dry and intact. Bedrest, heavy 2 assist/full lift. Regular liquids, pureed food. Pleasant and cooperative with cares. Follow up:
--- NOTE | 2017-01-09 05:12 | NUR ---
Significant events: Pt A/Ox3. VSS. No complaints of pain. CPAP while sleeping. Mayra wt 2400 out. Pills crushed in applesauce. Slept most of shift. L) thigh mepilex dressing CDI. Follow up: to [facility] on Sunday.
[2017-01-09 06:06] LABS: ALBUMIN 3.7 gm/dL (3.5-5.0); ANION GAP 14.7 (10.0-19.0); CALCIUM 8.4 mg/dL (8.5-10.5); CREATININE 2.3 mg/dL (0.6-1.3); PHOSPHORUS 2.9 mg/dL (2.5-4.9); POTASSIUM 3.7 mMol/L (3.7-5.1)
--- NOTE | 2017-01-09 12:06 | NUR ---
A-NUTRITION F/U IV LASIX GIVEN. (+)BM. PLAN TO D/C TO [facility] TOMORROW LABS: NA 137, K+ 3.7, GLU 147, BUN 75, CUSTODIAN MANAGER 2.3, ALB 3.7 MEDS: LASIX, LEVEMIR, NOVOLOG (MOD SS) DIET RX: PUREE DIET W/1500 ML FLUID RESTRICTION. ENSURE ENLIVE TID. PO INTAKE OF MEALS 0-100%. TAKES SUPPLEMENT WELL; 50-100% EST NUTR NEEDS: 1858-7506 KCALS AND 88-105 GM PROTEIN D-AT NUTRITION RISK W/INADEQUATE ORAL INTAKE AT TIMES R/T DECREASED APPETITE AEB INTAKE RECORDS I-1)CONTINUE W/ENSURE ENLIVE TID 2)RECOMMEND CONTINUING NUTRITION SUPPLEMENTS OF FACILITY CHOICE UPON D/C M/E-ENCOURAGE INTAKE OF MEALS AND SUPPLEMENTS 1)F/U PO INTAKE, SUPPLEMENT, AND POC (3-5 DAYS) 2)WILL ASSIST NEEDED
--- NOTE | 2017-01-09 12:31 | NUR ---
I did talk with DR Hampton and to plan transfer on Sunday. I then called his daughter and updated her and also left a vm with Elvia at the [facility]. I also updated Neena with EMS and will plan transfer for tomorrow.
--- NOTE | 2017-01-09 12:32 | NUR ---
I tentively have set up for 1100.
--- NOTE | 2017-01-09 13:17 | NUR ---
CHANGED CHOCOLATE ENSURE ENLIVE AT LUNCH TO [facility]. PT DOES NOT LIKE THE CHOCOLATE FLAVOR; PREFERS V[facility]A OR [facility]Y.
--- NOTE | 2017-01-09 16:17 | NUR ---
Significant Event: Alert and oriented X 3. O2 @ 2L by nasal cannula. Cpap at night. SBP 110's and 120's. HR 80's and 90's. Full lift. Skin tears on right side of trunk, open to air, WOC notified. Small open sore on coccyx, aloe applied. Xlarge soft bowel movement this shift. PICC upper right chest, flushes well with good blood return. PICC upper right arm, flushes well, good blood return. Lasix changed to oral. Pleasant and cooperative with cares. Follow up:
--- NOTE | 2017-01-10 04:55 | NUR ---
A&O. VSS. No c/o pain. @ltrs 02 via NC during day. 3ltrs via CPAP @ noc. Extensive bruising throughout body. Full lift. XXL BM tonight as well as yesterday during day shift. Mayra patent. PICC line in BRENDA. Subclavian line R chest. Nurse draws. Crushed meds in applesauce. Discharge today.
[2017-01-10 05:17] LABS: ALBUMIN 3.5 gm/dL (3.5-5.0); CALCIUM 8.4 mg/dL (8.5-10.5); CREATININE 2.4 mg/dL (0.6-1.3); PHOSPHORUS 3.5 mg/dL (2.5-4.9); POTASSIUM 3.9 mMol/L (3.7-5.1)
[2017-01-10 05:23] LABS: ANION GAP 12.9 (10.0-19.0)
[2017-01-10 05:47] LABS: HEMATOCRIT 27.6 % (33.0-50.0); HEMOGLOBIN 8.9 g/dL (11.0-16.0); MCHC 32.2 gm/dL (32.0-36.5); MCV 92.9 fl (83.0-98.0); MPV 11.4 fl (9.4-12.4); RBC 2.97 M/uL (3.50-5.50); RDW-CV 18.5 % (11.9-14.6); WBC 8.2 K/uL (4.0-11.0)
[2017-01-10 05:50] LABS: PLATELET COUNT 105 K/uL (150-450)
[2017-01-10 06:23] LABS: ABSOLUTE NEUTROPHIL CT (ANC) 7.6 K/uL (1.4-9.0); BANDED NEUTROPHIL # 0.2 K/uL (0.0-0.1); BANDED NEUTROPHILS % 2 %; LYMPHOCYTE # 0.4 K/uL (0.8-4.0); LYMPHOCYTE % 5 %; MONOCYTE # 0.1 K/uL (0.0-1.0); SEGMENTED NEUTROPHIL # 7.5 K/uL (1.4-9.0); SEGMENTED NEUTROPHIL % 91 %
--- NOTE | 2017-01-10 09:30 | NUR ---
I did call and left a vm with Elvia that pt will be coming today. I did fax orders and did call the charge nurse [facility] and yes they are ready for pt. I spoke with Dr Hampton and DR Dimitry duong. Will assist as needed.
--- NOTE | 2017-01-10 13:34 | NUR ---
Significant Event: A/O x3, cooperative with cares. VSS, SBPs 140-160s, HRs 70-80s, oxygen at 2 liters as per baseline. No c/o pain. Reposition every 2 hours. Transferred to stretcher per mechanical lift; transfer to [facility] per ambulance with EMT; transfer packed sent with et report called Follow up:
== END 2017-01-10 11:15 | disposition swing bed (61) | DRG 981 ==
LOC: GPCU 14:57 → GICU 14:57 → GPCU 01-01 17:55
PROVIDERS: Hospitalist; Internal Medicine; Internal Medicine Cardiovascular Disease; ADMIT Internal Medicine
DX: S70.12XA Contusion of left thigh, initial encounter (principal); J96.01 Acute respiratory failure with hypoxia; K72.00 Acute and subacute hepatic failure without coma; N17.0 Acute kidney failure with tubular necrosis; I50.33 Acute on chronic diastolic (congestive) heart failure; I82.621 Acute embolism and thrombosis of deep veins of right upper extremity; G93.40 Encephalopathy, unspecified; I82.4Z2 Acute embolism and thrombosis of unspecified deep veins of left distal lower extremity; R13.10 Dysphagia, unspecified; T81.19XA Other postprocedural shock, initial encounter; T79.A22A Traumatic compartment syndrome of left lower extremity, initial encounter; N17.9 Acute kidney failure, unspecified; D62 Acute posthemorrhagic anemia; D68.32 Hemorrhagic disorder due to extrinsic circulating anticoagulants; I13.0 Hypertensive heart and chronic kidney disease with heart failure and stage 1 through stage 4 chronic kidney disease, or unspecified chronic kidney disease; I69.354 Hemiplegia and hemiparesis following cerebral infarction affecting left non-dominant side; J44.1 Chronic obstructive pulmonary disease with (acute) exacerbation; N13.8 Other obstructive and reflux uropathy; Z51.5 Encounter for palliative care; E11.22 Type 2 diabetes mellitus with diabetic chronic kidney disease; Z66 Do not resuscitate; K59.00 Constipation, unspecified; N18.9 Chronic kidney disease, unspecified; Z79.4 Long term (current) use of insulin; E78.5 Hyperlipidemia, unspecified; E03.9 Hypothyroidism, unspecified; E66.01 Morbid (severe) obesity due to excess calories; Z68.36 Body mass index [BMI] 36.0-36.9, adult; Z99.3 Dependence on wheelchair; R29.6 Repeated falls; N48.89 Other specified disorders of penis; D69.6 Thrombocytopenia, unspecified; E87.6 Hypokalemia; L98.8 Other specified disorders of the skin and subcutaneous tissue; Z79.82 Long term (current) use of aspirin; Z79.899 Other long term (current) drug therapy; Z87.891 Personal history of nicotine dependence; R54 Age-related physical debility; T45.515A Adverse effect of anticoagulants, initial encounter; D72.829 Elevated white blood cell count, unspecified; E11.65 Type 2 diabetes mellitus with hyperglycemia; N40.1 Benign prostatic hyperplasia with lower urinary tract symptoms; N39.498 Other specified urinary incontinence; W05.0XXA Fall from non-moving wheelchair, initial encounter
CPT/HCPCS: A9270; C1769; C1880; C9113; J0171; J0360; J0690; J0692; J1160; J1200; J1265; J1644; J1720; J1756; J1940; J1953; J1956; J2020; J2270; J2370; J2405; J3010; J3370; J3480; J7030; J7040; J7050; J7060; J7512; J7612; P9016; P9017; P9047

== ENCOUNTER → 2017-01-10 | Outpatient (CLI) | payer MEDICARE, BC, MEDICAID ==
[~2017-01-10] MED LIST: ASCORBIC ACID500 MG PO; ASPIRIN LO-DOSE81 MG PO; AVODART0.5 MG PO; CALMOSEPTINE OI71 GM TOP; CEFEPIME HCL2 GM IV; COLACE100 MG PO; CONSTULOSE10 GM/15 M PO; COUMADIN ** IA5 MG PO; DELTASONE20 MG PO; DITROPAN5 MG PO; DUONEB INH; DURAGESIC 25MC25 MCG TRANS; EFFEXOR75 MG PO; FLOMAX0.4 MG PO; FLONASE 50 MCG/16 GM NOSE; FOLIC ACID1 MG PO; HUMULIN 70100 UNIT/M SUB-Q; LEVEMIR100 UNIT/1 SUB-Q; LEVOTHROID(SYN75 MCG PO; LOVENOX 10100 MG/1 M SUB-Q; MIRALAX PO527 GM/BOT PO; NORVASC5 MG PO; NOVOLOG100 UNIT/M SUB-Q; NYSTATIN1 EAC2 TOP; PERCOCET 10-321 EACH PO; POTASSIUM CHLO20 ME2 PO; PRIMAXIN IV; PROAIR HFA8.5 GM INH; PULMICORT0.5 MG/21 INH; RAZADYNE ER16 MG PO; TEMOVATE30 GM TOP; THERA-VITE W/ B1 TAB PO; TOPROL XL25 MG PO; TUMS X-STR300 MG PO; TYLENOL325 MG PO; VANCOMYCIN HCL1 GM IV; VITAMIN B-121000 MCG PO; VITAMIN E400 UNI2 PO; XANAX0.25 MG PO; ZAROXOLYN5 MG PO; ZOCOR20 MG PO; ZYRTEC10 MG PO
== END | disposition disaster alternative care site (69) ==
LOC: GAMB 11:06
DX: R53.1 Weakness (principal); I82.409 Acute embolism and thrombosis of unspecified deep veins of unspecified lower extremity; J44.9 Chronic obstructive pulmonary disease, unspecified; E11.9 Type 2 diabetes mellitus without complications; E78.5 Hyperlipidemia, unspecified; E03.9 Hypothyroidism, unspecified; I10 Essential (primary) hypertension; F32.9 Major depressive disorder, single episode, unspecified; Z86.73 Personal history of transient ischemic attack (TIA), and cerebral infarction without residual deficits; Z79.82 Long term (current) use of aspirin; Z79.4 Long term (current) use of insulin; Z79.899 Other long term (current) drug therapy; Z88.6 Allergy status to analgesic agent; Z88.8 Allergy status to other drugs, medicaments and biological substances
CPT/HCPCS: A0422; A0425; A0428